=== PATIENT | female | born 1995 | race Caucasian/White ===

== ENCOUNTER → 2016-10-27 | Outpatient (REF) | payer OTHER ==
[~2016-10-27] MED LIST: ACET50TA PO; IBUP60TA PO; PENI250T81 OR; TYLENOL #3 OR
== END ==
LOC: M LAB REF 16:10
PROVIDERS: ATTEND Physician Assistant
DX: R10.9 Unspecified abdominal pain (principal)

== ENCOUNTER 2017-05-11 17:10 | Emergency (ER) | payer OTHER ==
[~2017-05-11] VITALS: Ht 172.7 cm; Wt 90.9 kg
[2017-05-11] MEDS ORDERED: CELE40TA PO (17:30)
--- NOTE | 2017-05-11 18:08 | REP ---
Chest two views HISTORY: Shortness of breath Comparison: 04/25/2016 The lungs are clear. The heart is normal in size. The pulmonary vasculature is normal in appearance. The bony structure is intact. IMPRESSION: No acute disease. Signed by Clayton Henderson MD 05/11/2017 06:00 P
[2017-05-11] MEDS ORDERED: CYCL10TA PO (18:22)
[2017-05-11] MEDS ORDERED: NAPR500T PO (18:22)
[2017-05-11 18:27] VITALS: BP 132/73
[2017-05-11] MEDS ORDERED: diazePAM 5 MG TAB PO ONE (18:30)
[2017-05-11] MEDS ORDERED: NAPROXEN 250 MG TAB PO ONE (18:30)
--- NOTE | 2017-05-13 08:21 | ECGEPIP ---
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
== END 2017-05-11 18:48 | disposition home or self-care (01) ==
LOC: M ED 17:10
DX: M54.12 Radiculopathy, cervical region (principal); F17.200 Nicotine dependence, unspecified, uncomplicated; Z79.899 Other long term (current) drug therapy

== ENCOUNTER 2017-06-11 15:32 | Emergency (ER) | payer OTHER ==
[~2017-06-11] VITALS: Ht 175.3 cm; Wt 90.5 kg
[~2017-06-11 15:32] MED LIST changes: +CELE40TA PO; +CYCL10TA PO; +NAPR500T PO
[2017-06-11] MEDS ORDERED: KETOROLAC 30 MG/ML VIAL (J1885) IV ONE (18:45)
[2017-06-11] MEDS ORDERED: NS 1,000 ML IV ONE (18:45)
[2017-06-11] MEDS ORDERED: ONDANSETRON 4MG/2ML VIAL (J2405) IV ONE ×2 (18:45→20:30)
[2017-06-11 19:17] LABS: BASO % 0.1 % (0.0-1.0); EOS # 0.2 10^3/uL (0.0-0.50); IMMATURE GRANULOCYTE % 0.6 % (0-0); LYMPH # 2.3 10^3/uL (1.5-6.5); LYMPH % 19.5 % (24.0-44.0); MEAN CORPUSCULAR HGB CONC 33.3 g/dl (32.0-36.5); MONO # 0.5 10^3/uL (0.0-0.8); MONO % 4.2 % (0.0-5.0); NEUTROPHILS # 8.6 10^3/uL (1.8-7.7); NEUTROPHILS % 73.6 % (36.0-66.0); PLATELET COUNT, AUTOMATED 470 10^3/uL (150-450); RED CELL DISTRIBUTION WIDTH 13.2 % (11.5-14.5); WHITE BLOOD COUNT 11.7 10^3/uL (4.0-10.0)
--- NOTE | 2017-06-11 19:50 | REPUSA ---
Clinical history: Right upper quadrant pain. Findings: The pancreas is limited in visualization secondary to overlying bowel gas, but appears pennie sly unremarkable. The liver demonstrates uniform echotexture and echogenicity, with no mass lesions. The gallbladder is unremarkable. The common bile duct measures 3 mm and is within normal limits. The right kidney measures 11.3 cm in length and is unremarkable. There is no ascites. Impression: Unremarkable ultrasound examination of the right upper quadrant.
[2017-06-11 19:57] LABS: ALKALINE PHOSPHATASE 65 U/L (45-117); ALT/SGPT 35 U/L (12-78); AMYLASE 36 U/L (25-115); ANION GAP 8 MEQ/L (8-16); AST/SGOT 25 U/L (15-37); BILIRUBIN,DIRECT < 0.1 MG/DL (0.0-0.2); BILIRUBIN,TOTAL 0.3 MG/DL (0.2-1.0); BLOOD UREA NITROGEN 7 MG/DL (7-18); CALCIUM LEVEL 8.3 MG/DL (8.5-10.1); CARBON DIOXIDE LEVEL 25 MEQ/L (21-32); CHLORIDE LEVEL 102 MEQ/L (98-107); CREATININE FOR GFR 0.51 MG/DL (0.55-1.02); GLOMERULAR FILTRATION RATE > 60.0 (>60); GLUCOSE, FASTING 85 MG/DL (70-105); POTASSIUM SERUM 3.6 MEQ/L (3.5-5.1); SODIUM LEVEL 135 MEQ/L (136-145)
[2017-06-11] MEDS ORDERED: MORPHINE 4 MG/ML 1ML SYRINGE IV ONE (20:30)
[2017-06-11] MEDS ORDERED: ISOVUE-370 76% 100ML VIAL (Q9967) As Ordered ONE (21:21)
--- NOTE | 2017-06-11 22:40 | REPUSA ---
CT of the abdomen and pelvis with contrast Clinical statement: Pain. Technique: Multiple axial CT images were obtained from the base of the lungs through the floor of the pelvis utilizing 5 mm axial slices after administration of oral and nonionic intravenous contrast. C oronal and sagittal reconstructions were also obtained. Comparison: 05/08/2016. Findings: Chest: The visualized lung bases are clear. Abdomen: The liver, spleen, pancreas, kidneys, gallbladder, and adrenal glands are unremarkable. A 2 mm nonobstructing stone is seen in the left kidney. The aorta is within normal limits. There is no ev idence of abdominal lymphadenopathy or ascites. Pelvis: The bowel is unremarkable, with no obstructive or inflammatory changes. The appendix is david l. The urinary bladder is within normal limits. IUD is in place within the uterus. The other pelvic s tructures appear grossly intact. There is no evidence of pelvic lymphadenopathy or ascites. Bones: There are no suspicious osseous abnormalities seen. Impression: 1. No focal abnormality to explain the patient's pain. 2. 2 mm nonobstructing stone in the left kidney. 3. No obstructive or inflammatory bowel changes.
[2017-06-11] MEDS ORDERED: ZOFR4TAB3 PO (23:03)
[2017-06-11] MEDS ORDERED: NORCOTAB PO (23:03)
[2017-06-11 23:10] VITALS: BP 120/69
== END 2017-06-11 23:13 | disposition home or self-care (01) ==
LOC: M ED 15:32
DX: R10.9 Unspecified abdominal pain (principal); R50.9 Fever, unspecified; Z86.73 Personal history of transient ischemic attack (TIA), and cerebral infarction without residual deficits; R51 Headache; Z87.442 Personal history of urinary calculi; F41.9 Anxiety disorder, unspecified; F17.200 Nicotine dependence, unspecified, uncomplicated; N20.0 Calculus of kidney; Z79.899 Other long term (current) drug therapy
CPT/HCPCS: 36415; 74177; 76705; 80048; 80076; 81001; 81025; 82150; 83690; 85025; 96374; 96375; 96376; 99284; J1885; J2405; Q9967

== ENCOUNTER 2017-08-07 15:07 | Emergency (ER) | payer OTHER ==
[~2017-08-07] VITALS: Ht 172.7 cm; Wt 96.2 kg
[~2017-08-07 15:07] MED LIST changes: +NORCOTAB PO; +ZOFR4TAB3 PO
[2017-08-07] MEDS ORDERED: NS 1,000 ML IV ONE (17:15)
[2017-08-07] MEDS ORDERED: ONDANSETRON 4MG/2ML VIAL (J2405) IV ONE (17:15)
[2017-08-07 17:41] LABS: BASO # 0.1 10^3/uL (0.0-0.2); BASO % 0.4 % (0.0-1.0); EOS # 0.2 10^3/uL (0.0-0.50); EOS % 1.2 % (0.0-3.0); IMMATURE GRANULOCYTE % 0.3 % (0-0); LYMPH # 3.3 10^3/uL (1.5-6.5); LYMPH % 27.2 % (24.0-44.0); MEAN CORPUSCULAR HEMOGLOBIN 27.2 pg (27.0-33.0); MEAN CORPUSCULAR HGB CONC 33.5 g/dl (32.0-36.5); MEAN CORPUSCULAR VOLUME 81.2 fl (80.0-96.0); MONO # 0.9 10^3/uL (0.0-0.8); MONO % 7.5 % (0.0-5.0); NEUTROPHILS # 7.8 10^3/uL (1.8-7.7); NEUTROPHILS % 63.4 % (36.0-66.0); PLATELET COUNT, AUTOMATED 478 10^3/uL (150-450); RED CELL DISTRIBUTION WIDTH 12.7 % (11.5-14.5); WHITE BLOOD COUNT 12.3 10^3/uL (4.0-10.0)
[2017-08-07] MEDS: MORPHINE 2 MG/ML 1ML SYRINGE IV PRN ×2 (17:43→18:33)
--- NOTE | 2017-08-07 17:43 | REP ---
Urinary tract sonogram: History: Flank pain. Comparison: Comparison CT study June 11, 2017 does show two intrarenal calculi lower pole left kidney and one in the upper pole of the left kidney. Findings: Scanning at the level of the urinary bladder shows no abnormality. Renal cortical echogenicity pattern is normal bilaterally and contours are smooth. There is no evidence of hydronephrosis, cyst, mass, or calculus in either kidney. The right kidney measures 11.7 x 5.7 x 3.9 cm. Left renal dimensions are 12.3 x 5.9 x 4.9 cm. Impression: Normal urinary tract sonography. No hydronephrosis seen. Signed by Carl Quiroz MD 08/07/2017 05:35 P
[2017-08-07 18:16] LABS: ALBUMIN 3.9 GM/DL (3.2-5.2); ALBUMIN/GLOBULIN RATIO 1.03 (1.00-1.93); ALKALINE PHOSPHATASE 68 U/L (45-117); ALT/SGPT 22 U/L (12-78); ANION GAP 7 MEQ/L (8-16); AST/SGOT 11 U/L (7-37); BILIRUBIN,DIRECT 0.1 MG/DL (0.0-0.2); BILIRUBIN,TOTAL 0.5 MG/DL (0.2-1.0); BLOOD UREA NITROGEN 15 MG/DL (7-18); CALCIUM LEVEL 9.4 MG/DL (8.5-10.1); CARBON DIOXIDE LEVEL 27 MEQ/L (21-32); CHLORIDE LEVEL 104 MEQ/L (98-107); GLOMERULAR FILTRATION RATE > 60.0 (>60); GLUCOSE, FASTING 82 MG/DL (70-105); POTASSIUM SERUM 4.2 MEQ/L (3.5-5.1); SODIUM LEVEL 138 MEQ/L (136-145); TOTAL PROTEIN 7.7 GM/DL (6.4-8.2)
[2017-08-07 18:38] LABS: CONTROL LINE UCG INT CTR LINE PRESENT
[2017-08-07 19:26] VITALS: BP 138/91
[2017-08-07] MEDS ORDERED: NORCOTAB PO (19:29)
[2017-08-07] MEDS ORDERED: NORCO 5/325MG TABLET (BULK FOR ED) PO ONE (19:30)
[2017-08-07] MEDS ORDERED: ZOFR4TAB3 PO (19:33)
--- NOTE | 2017-08-07 19:38 | REP ---
CT abdomen pelvis without IV or oral contrast: Renal stone protocol. History: Flank pain. Normal ultrasound. History of kidney stones. Comparison CT study June 11, 2017. 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 An IUD is seen. The lung bases are clear. There is no evidence of pleural effusion or upper abdominal ascites. The liver and the spleen are normal in size homogeneous in texture. The gallbladder and the pancreas are unremarkable. No adrenal lesion is seen on either side. No retroperitoneal mass or adenopathy is observed. A normal appendix is seen. The IUD is noted in good position in the uterus. Urinary bladder is unremarkable. There is no evidence of hydronephrosis on either side. No ureteral calculus is seen. There are however two separate intrarenal calculi in the left kidney. There is 2 mm calculus at the upper pole and another 3-4 mm calculus in the lower pole. Review of CT images from June 11, 2017 demonstrate that there were three intrarenal calculi in the left kidney at that time. Two in the lower pole one in the upper pole. No intrarenal calculus is noted on the right. There are phleboliths bilaterally in the pelvis unchanged. No abdominal wall defect is seen. No bony destructive lesion is appreciated. Impression: Intrarenal nephrolithiasis left kidney with two identifiable intrarenal calculi. Previous CT study shows three. No hydronephrosis or ureteral calculus. IUD in place. Normal appendix. Signed by Carl Quiroz MD 08/07/2017 07:48 P
== END 2017-08-07 19:54 | disposition home or self-care (01) ==
LOC: M ED 15:07
DX: N20.0 Calculus of kidney (principal); Z86.73 Personal history of transient ischemic attack (TIA), and cerebral infarction without residual deficits; R51 Headache; F41.9 Anxiety disorder, unspecified; Z87.891 Personal history of nicotine dependence; Z87.442 Personal history of urinary calculi; Z87.440 Personal history of urinary (tract) infections; Z97.5 Presence of (intrauterine) contraceptive device; Z79.899 Other long term (current) drug therapy
CPT/HCPCS: 74176; 76775; 80048; 80076; 81001; 83690; 84703; 85025; 96361; 96374; 96375; 99284; J2405

== ENCOUNTER 2017-08-11 00:51 | Emergency (ER) | payer OTHER ==
[~2017-08-11] VITALS: Ht 172.7 cm; Wt 96.4 kg
[2017-08-11 01:14] LABS: BASO # 0.1 10^3/uL (0.0-0.2); BASO % 0.5 % (0.0-1.0); EOS # 0.3 10^3/uL (0.0-0.50); EOS % 2.7 % (0.0-3.0); IMMATURE GRANULOCYTE % 0.2 % (0-0); LYMPH # 4.4 10^3/uL (1.5-6.5); MEAN CORPUSCULAR HEMOGLOBIN 27.3 pg (27.0-33.0); MEAN CORPUSCULAR HGB CONC 32.7 g/dl (32.0-36.5); MEAN CORPUSCULAR VOLUME 83.5 fl (80.0-96.0); MONO # 1.1 10^3/uL (0.0-0.8); MONO % 8.8 % (0.0-5.0); NEUTROPHILS # 6.3 10^3/uL (1.8-7.7); NEUTROPHILS % 51.8 % (36.0-66.0); PLATELET COUNT, AUTOMATED 470 10^3/uL (150-450); RED CELL DISTRIBUTION WIDTH 12.5 % (11.5-14.5); WHITE BLOOD COUNT 12.3 10^3/uL (4.0-10.0)
[2017-08-11 01:29] LABS: CONTROL LINE HCG INT CTR LINE PRESENT
[2017-08-11 01:36] LABS: ALBUMIN 3.9 GM/DL (3.2-5.2); ALBUMIN/GLOBULIN RATIO 0.93 (1.00-1.93); ALKALINE PHOSPHATASE 62 U/L (45-117); ALT/SGPT 20 U/L (12-78); AMYLASE 47 U/L (25-115); ANION GAP 6 MEQ/L (8-16); AST/SGOT 13 U/L (7-37); BILIRUBIN,DIRECT < 0.1 MG/DL (0.0-0.2); BILIRUBIN,TOTAL 0.2 MG/DL (0.2-1.0); BLOOD UREA NITROGEN 19 MG/DL (7-18); CALCIUM LEVEL 9.2 MG/DL (8.5-10.1); CARBON DIOXIDE LEVEL 30 MEQ/L (21-32); CHLORIDE LEVEL 104 MEQ/L (98-107); CREATININE FOR GFR 0.57 MG/DL (0.55-1.02); GLOMERULAR FILTRATION RATE > 60.0 (>60); GLUCOSE, FASTING 70 MG/DL (70-105); POTASSIUM SERUM 3.9 MEQ/L (3.5-5.1); SODIUM LEVEL 140 MEQ/L (136-145); TOTAL PROTEIN 8.1 GM/DL (6.4-8.2)
[2017-08-11] MEDS ORDERED: KETOROLAC 30 MG/ML VIAL (J1885) IV ONE (03:00)
[2017-08-11] MEDS ORDERED: KETO10TAB PO (03:42)
[2017-08-11 03:47] VITALS: BP 138/75
--- NOTE | 2017-08-11 03:50 | REPUSA ---
CLINICAL HISTORY: Abdominal pain. TECHNIQUE: Multiple axial, sagittal and coronal CT images were obtained through the abdomen and pelvi s without administration of oral or IV contrast material. COMMENTS: Comparison to prior exam performed on 08/07/2017. The liver is of uniform attenuation without mass or defect. There is no intra or extrahepatic biliary ductal dilatation. The spleen is normal. The gallbladder is within normal limits. The pancreas is of normal contour and attenuation characteristics. There is no evidence of adrenal mass. Left renal nonobstructing stones with the largest measuring 5 mm. The kidneys are normal in size, shape and configuration. No right renal or ureteral calculi are ident ified. There is no hydroureter or hydronephrosis. There is no evidence for appendicitis. There is no bowel wall thickening. No evidence for small or la rge bowel obstruction. There is no evidence of abdominal ascites or lymphadenopathy. There is no evidence of intrinsic or extrinsic bladder mass. There is no pelvic ascites or lymphadeno michael. Unremarkable intrauterine device. Large bowel fecal stasis. Images of the lung bases show no evidence of pleural or parenchymal mass. There are no pleural effusi ons. The bony structures are free of lytic or blastic lesions. Multilevel degenerative changes are seen in volving the thoracolumbar spine. Scattered calcifications are seen involving the aorta and major branches compatible with atherosclero sis. IMPRESSION: Nonobstructing left nephrolithiasis. Unchanged. Constipation. Unchanged. Thank you for your kind referral of this patient.
== END 2017-08-11 03:59 | disposition home or self-care (01) ==
LOC: M ED 00:51
DX: M54.9 Dorsalgia, unspecified (principal); Z87.891 Personal history of nicotine dependence; N20.0 Calculus of kidney; K59.00 Constipation, unspecified
CPT/HCPCS: 74176; 80048; 80076; 81001; 82150; 83690; 84703; 85025; 87086; 96374; 99284; J1885

== ENCOUNTER → 2017-09-04 | Outpatient (REF) | payer OTHER ==
[~2017-09-04] MED LIST changes: +KETO10TAB PO
== END ==
LOC: M SFHCPLAZ 11:34
PROVIDERS: ATTEND Family Medicine
DX: N20.0 Calculus of kidney (principal)

== ENCOUNTER → 2017-09-18 | Outpatient (REF) | payer OTHER ==
[2017-09-18 18:47] LABS: APPEARANCE, URINE CLEAR (CLEAR); BACTERIA, URINE AUTO NEGATIVE (NEGATIVE); BILIRUBIN, URINE AUTO NEGATIVE (NEGATIVE); BLOOD, URINE BLOOD NEGATIVE (NEGATIVE); COLOR, URINE STRAW (YELLOW); GLUCOSE, URINE (UA) AUTO NEGATIVE (NEGATIVE); KETONE, URINE AUTO NEGATIVE (NEGATIVE); LEUKOCYTE ESTERASE, URINE AUTO NEGATIVE (NEGATIVE); MUCUS, URINE SMALL (NEGATIVE); NITRITE, URINE AUTO NEGATIVE (NEGATIVE); PROTEIN, URINE AUTO NEGATIVE (NEGATIVE); RBC, URINE AUTO 0 /HPF (0-3); SPECIFIC GRAVITY URINE AUTO 1.011 (1.002-1.035); SQUAMOUS EPITHELIAL CELL UR AU 2 /HPF (0-6); UROBILINOGEN, URINE AUTO 0.2 mg/dL (0.0-2.0); WBC, URINE AUTO 1 /HPF (0-3)
[2017-09-24 14:11] LABS: ALPRAZOLAM, URINE Positive (.); ALPRAZOLAM, URINE CONFIRM 193 ng/mL (Cutoff=100); AMPHETAMINE SCREEN, URINE Negative ng/mL (Cutoff=1000); BARBITURATES SCREEN, URINE Negative ng/mL (Cutoff=200); BENZODIAZEPINES, URINE Positive ng/mL (Cutoff=100); BENZODIAZEPINES, URINE SCREEN See Final Results ng/mL (Cutoff=200); CANNABINOID SCREEN, URINE Negative ng/mL (Cutoff=20); CLONAZEPAM, URINE Negative (Cutoff=100); COCAINE SCREEN, URINE Negative ng/mL (Cutoff=300); CREATININE, URINE 40.7 mg/dL (20.0-300.0); FENTANYL URINE SCREEN Negative pg/mL (Cutoff=2000); FLURAZEPAM, URINE Negative (Cutoff=100); LORAZEPAM, URINE Negative (Cutoff=100); METHADONE, URINE SCREEN Negative ng/mL (Cutoff=300); MIDAZOLAM, URINE Negative (Cutoff=100); NORDIAZEPAM, URINE Negative (Cutoff=100); OPIATE SCREEN, URINE Negative ng/mL (Cutoff=300); OXAZEPAM, URINE Negative (Cutoff=100); OXYCODONE, SCREEN, URINE Negative ng/mL (Cutoff=100); PCP SCREEN, URINE Negative ng/mL (Cutoff=25); SPECIFIC GRAVITY, URINE 1.015 (.); TEMAZEPAM, URINE Negative (Cutoff=100); TRIAZOLAM, URINE Negative (Cutoff=100); pH, URINE 7.2 (4.5-8.9)
== END ==
LOC: M SFHCPLAZ 17:04
DX: N20.0 Calculus of kidney (principal)

== ENCOUNTER 2017-12-02 16:19 | Emergency (ER) | payer OTHER ==
[2017-12-02 16:54] LABS: APPEARANCE, URINE CLEAR (CLEAR); BACTERIA, URINE AUTO NEGATIVE (NEGATIVE); BILIRUBIN, URINE AUTO NEGATIVE (NEGATIVE); BLOOD, URINE BLOOD 2+ (NEGATIVE); COLOR, URINE YELLOW (YELLOW); GLUCOSE, URINE (UA) AUTO NEGATIVE (NEGATIVE); KETONE, URINE AUTO NEGATIVE (NEGATIVE); LEUKOCYTE ESTERASE, URINE AUTO NEGATIVE (NEGATIVE); MUCUS, URINE SMALL (NEGATIVE); NITRITE, URINE AUTO NEGATIVE (NEGATIVE); PROTEIN, URINE AUTO NEGATIVE (NEGATIVE); RBC, URINE AUTO 2 /HPF (0-3); SPECIFIC GRAVITY URINE AUTO 1.021 (1.002-1.035); SQUAMOUS EPITHELIAL CELL UR AU 13 /HPF (0-6); UROBILINOGEN, URINE AUTO 0.2 mg/dL (0.0-2.0); WBC, URINE AUTO 2 /HPF (0-3)
[2017-12-02] MEDS: NS 1,000 ML IV (17:11)
[2017-12-02] MEDS: MORPHINE 4 MG/ML 1ML VIAL (J2270) IV (17:12)
[2017-12-02] MEDS: ONDANSETRON 4MG/2ML VIAL (J2405) IV (17:12)
[2017-12-02 17:16] LABS: BASO # 0.1 10^3/uL (0.0-0.2); BASO % 0.8 % (0.0-1.0); EOS # 0.2 10^3/uL (0.0-0.50); HEMATOCRIT 46.5 % (36.0-47.0); HEMOGLOBIN 15.4 g/dl (12.0-16.0); IMMATURE GRANULOCYTE % 0.7 % (0-3.0); LYMPH # 3.7 10^3/uL (1.5-6.5); LYMPH % 44.2 % (24.0-44.0); MEAN CORPUSCULAR HEMOGLOBIN 26.3 pg (27.0-33.0); MEAN CORPUSCULAR HGB CONC 33.1 g/dl (32.0-36.5); MEAN CORPUSCULAR VOLUME 79.5 fl (80.0-96.0); MONO # 0.5 10^3/uL (0.0-0.8); NEUTROPHILS # 3.8 10^3/uL (1.8-7.7); NEUTROPHILS % 46.3 % (36.0-66.0); PLATELET COUNT, AUTOMATED 437 10^3/uL (150-450); RED BLOOD COUNT 5.85 10^6/uL (4.00-5.40); RED CELL DISTRIBUTION WIDTH 13.1 % (11.5-14.5); WHITE BLOOD COUNT 8.3 10^3/uL (4.0-10.0)
[2017-12-02 17:30] LABS: ALBUMIN 4.2 GM/DL (3.2-5.2); ALBUMIN/GLOBULIN RATIO 1.05 (1.00-1.93); ALKALINE PHOSPHATASE 64 U/L (45-117); ALT/SGPT 28 U/L (12-78); ANION GAP 6 MEQ/L (8-16); AST/SGOT 25 U/L (7-37); BILIRUBIN,TOTAL 0.7 MG/DL (0.2-1.0); BLOOD UREA NITROGEN 18 MG/DL (7-18); CALCIUM LEVEL 9.2 MG/DL (8.5-10.1); CARBON DIOXIDE LEVEL 29 MEQ/L (21-32); CHLORIDE LEVEL 105 MEQ/L (98-107); CREATININE FOR GFR 0.64 MG/DL (0.55-1.30); GLOMERULAR FILTRATION RATE > 60.0 (>60); GLUCOSE, FASTING 86 MG/DL (70-100); POTASSIUM SERUM 4.3 MEQ/L (3.5-5.1); SODIUM LEVEL 140 MEQ/L (136-145); TOTAL PROTEIN 8.2 GM/DL (6.4-8.2)
[2017-12-02 17:31] LABS: CONTROL LINE UCG INT CTR LINE PRESENT; URINE PREG TEST NEGATIVE (NEGATIVE)
[2017-12-02] MEDS: NORCO 5/325MG TABLET (BULK FOR ED) PO (19:58)
== END 2017-12-02 20:01 | disposition home or self-care (01) ==
LOC: M ED 16:19
DX: N23 Unspecified renal colic (principal); Z87.442 Personal history of urinary calculi; Z79.899 Other long term (current) drug therapy
CPT/HCPCS: J2270

== ENCOUNTER 2018-03-04 18:50 | Emergency (ER) | payer OTHER ==
[2018-03-04 20:49] LABS: BASO # 0.1 10^3/uL (0.0-0.2); BASO % 0.5 % (0.0-1.0); EOS # 0.2 10^3/uL (0.0-0.50); EOS % 1.6 % (0.0-3.0); HEMOGLOBIN 14.6 g/dl (12.0-15.5); IMMATURE GRANULOCYTE % 0.3 % (0-3.0); LYMPH % 36.1 % (24.0-44.0); MEAN CORPUSCULAR HEMOGLOBIN 27.8 pg (27.0-33.0); MEAN CORPUSCULAR VOLUME 81.9 fl (80.0-96.0); MONO # 0.6 10^3/uL (0.0-0.8); MONO % 5.7 % (0.0-5.0); NEUTROPHILS # 6.1 10^3/uL (1.8-7.7); NEUTROPHILS % 55.8 % (36.0-66.0); PLATELET COUNT, AUTOMATED 477 10^3/uL (150-450); RED BLOOD COUNT 5.25 10^6/uL (4.00-5.40); RED CELL DISTRIBUTION WIDTH 12.6 % (11.5-14.5); WHITE BLOOD COUNT 10.9 10^3/uL (4.0-10.0)
[2018-03-04 21:01] LABS: AMORPHOUS SEDIMENT RFX SMALL (NEGATIVE); KETONE, URINE AUTO RFX NEGATIVE (NEGATIVE); NITRITE, URINE AUTO RFX NEGATIVE (NEGATIVE); RBC, URINE AUTO RFX 0 /HPF (0-3); SPECIFIC GRAVITY UR AUTO RFX 1.021 (1.002-1.035); SQUAM EPITHELIAL CELL UR AURFX 6 /HPF (0-6); WBC, URINE AUTO RFX 0 /HPF (0-3)
[2018-03-04 21:04] LABS: LEUKOCYTE ESTERASE UR AUTO RFX TRACE (NEGATIVE)
[2018-03-04 21:19] LABS: ALBUMIN 4.1 GM/DL (3.2-5.2); ALBUMIN/GLOBULIN RATIO 0.98 (1.00-1.93); ALKALINE PHOSPHATASE 49 U/L (45-117); ALT/SGPT 26 U/L (12-78); ANION GAP 8 MEQ/L (8-16); AST/SGOT 17 U/L (7-37); BILIRUBIN,DIRECT 0.1 MG/DL (0.0-0.2); BILIRUBIN,TOTAL 0.3 MG/DL (0.2-1.0); BLOOD UREA NITROGEN 13 MG/DL (7-18); CALCIUM LEVEL 8.9 MG/DL (8.5-10.1); CARBON DIOXIDE LEVEL 29 MEQ/L (21-32); CHLORIDE LEVEL 107 MEQ/L (98-107); CREATININE FOR GFR 0.78 MG/DL (0.55-1.30); GLOMERULAR FILTRATION RATE > 60.0 (>60); GLUCOSE, FASTING 72 MG/DL (70-100); LIPASE 137 U/L (73-393); POTASSIUM SERUM 3.6 MEQ/L (3.5-5.1); SODIUM LEVEL 144 MEQ/L (136-145); TOTAL PROTEIN 8.3 GM/DL (6.4-8.2)
[2018-03-05] MEDS: PERCOCET 5MG/325MG TAB PO ×2 (01:13)
== END 2018-03-05 03:51 | disposition home or self-care (01) ==
LOC: M ED 03-05 00:37
DX: K52.9 Noninfective gastroenteritis and colitis, unspecified (principal); N20.0 Calculus of kidney; R11.0 Nausea; Z87.442 Personal history of urinary calculi; Z87.440 Personal history of urinary (tract) infections; Z86.73 Personal history of transient ischemic attack (TIA), and cerebral infarction without residual deficits; F41.9 Anxiety disorder, unspecified; Z87.891 Personal history of nicotine dependence; Z79.899 Other long term (current) drug therapy
CPT/HCPCS: 74176

== ENCOUNTER → 2018-03-29 | Outpatient (CLI) | payer MEDICAID | LOC: M OUTALCOH 12:44 | DX: Z13.9 Encounter for screening, unspecified (principal); F12.20 Cannabis dependence, uncomplicated ==

== ENCOUNTER 2018-04-08 15:00 | Outpatient (RCR) | payer MEDICAID | END 2018-04-16 | LOC: M OUTALCOH 15:00 | DX: F12.20 Cannabis dependence, uncomplicated (principal); F17.200 Nicotine dependence, unspecified, uncomplicated ==

== ENCOUNTER 2018-05-23 15:56 | Outpatient (RCR) | payer MEDICAID | END 2018-06-16 | LOC: M OUTALCOH 15:56 | DX: F12.20 Cannabis dependence, uncomplicated (principal); F17.200 Nicotine dependence, unspecified, uncomplicated ==

== ENCOUNTER → 2018-06-14 | Outpatient (CLI) | payer OTHER ==
[2018-06-19 08:07] LABS: OXYCODONE SCREEN Negative ng/mL (Cutoff:5)
== END ==
LOC: M LAB 16:44
DX: F12.20 Cannabis dependence, uncomplicated (principal)
CPT/HCPCS: 36415

== ENCOUNTER 2018-06-18 10:00 | Outpatient (RCR) | payer MEDICAID | END 2018-07-17 | LOC: M OUTALCOH 06-20 10:00 | DX: F12.20 Cannabis dependence, uncomplicated (principal); F17.200 Nicotine dependence, unspecified, uncomplicated ==

== ENCOUNTER 2018-06-19 21:25 | Emergency (ER) | payer OTHER, MEDICAID ==
[2018-06-19] MEDS: KETOROLAC 60 MG/2 ML VIAL (J1885) IM (22:03)
[2018-06-19] MEDS: NORCO, ANEXSIA 5/325MG TABLET (HYDROcodone/ACETAMINOPHEN) PO (22:03)
== END 2018-06-19 22:17 | disposition home or self-care (01) ==
LOC: M ED 21:25
DX: S60.222A Contusion of left hand, initial encounter (principal); W22.8XXA Striking against or struck by other objects, initial encounter; Y92.018 Other place in single-family (private) house as the place of occurrence of the external cause
CPT/HCPCS: J1885

== ENCOUNTER 2018-07-22 14:21 | Outpatient (RCR) | payer MEDICAID | END 2018-08-16 | LOC: M OUTALCOH 07-29 16:00 | DX: F12.20 Cannabis dependence, uncomplicated (principal); F17.200 Nicotine dependence, unspecified, uncomplicated ==

== ENCOUNTER 2018-08-04 17:49 | Emergency (ER) | payer MEDICAID ==
[2018-08-04 18:38] LABS: APPEARANCE, URINE CLEAR (CLEAR); BACTERIA, URINE AUTO NEGATIVE (NEGATIVE); BILIRUBIN, URINE AUTO NEGATIVE (NEGATIVE); BLOOD, URINE BLOOD NEGATIVE (NEGATIVE); COLOR, URINE YELLOW (YELLOW); GLUCOSE, URINE (UA) AUTO NEGATIVE (NEGATIVE); KETONE, URINE AUTO NEGATIVE (NEGATIVE); LEUKOCYTE ESTERASE, URINE AUTO NEGATIVE (NEGATIVE); MUCUS, URINE SMALL (NEGATIVE); NITRITE, URINE AUTO NEGATIVE (NEGATIVE); PROTEIN, URINE AUTO NEGATIVE (NEGATIVE); RBC, URINE AUTO 2 /HPF (0-3); SPECIFIC GRAVITY URINE AUTO 1.013 (1.002-1.035); SQUAMOUS EPITHELIAL CELL UR AU 2 /HPF (0-6); UROBILINOGEN, URINE AUTO 0.2 mg/dL (0.0-2.0); WBC, URINE AUTO 1 /HPF (0-3)
[2018-08-04 18:39] LABS: BASO % 0.4 % (0.0-1.0); EOS % 0.3 % (0.0-3.0); HEMATOCRIT 44.9 % (36.0-47.0); HEMOGLOBIN 15.1 g/dl (12.0-15.5); IMMATURE GRANULOCYTE % 0.4 % (0-3.0); LYMPH # 3.2 10^3/uL (1.5-6.5); LYMPH % 31.4 % (24.0-44.0); MEAN CORPUSCULAR HEMOGLOBIN 27.7 pg (27.0-33.0); MEAN CORPUSCULAR HGB CONC 33.6 g/dl (32.0-36.5); MEAN CORPUSCULAR VOLUME 82.4 fl (80.0-96.0); MONO # 0.6 10^3/uL (0.0-0.8); MONO % 5.4 % (0.0-5.0); NEUTROPHILS # 6.4 10^3/uL (1.8-7.7); NEUTROPHILS % 62.1 % (36.0-66.0); PLATELET COUNT, AUTOMATED 434 10^3/uL (150-450); RED BLOOD COUNT 5.45 10^6/uL (4.00-5.40); RED CELL DISTRIBUTION WIDTH 12.2 % (11.5-14.5); WHITE BLOOD COUNT 10.3 10^3/uL (4.0-10.0)
[2018-08-04] MEDS: methylPREDNISolone INJ 125 MG/2 ML VIAL (J2930) IV (18:43)
[2018-08-04] MEDS: CYCLOBENZAPRINE 10 MG TAB PO (18:43)
[2018-08-04 19:00] LABS: ANION GAP 8 MEQ/L (8-16); BLOOD UREA NITROGEN 11 MG/DL (7-18); CALCIUM LEVEL 9.8 MG/DL (8.5-10.1); CARBON DIOXIDE LEVEL 27 MEQ/L (21-32); CHLORIDE LEVEL 104 MEQ/L (98-107); CREATININE FOR GFR 0.59 MG/DL (0.55-1.30); GLOMERULAR FILTRATION RATE > 60.0 (>60); GLUCOSE, FASTING 86 MG/DL (70-100); SODIUM LEVEL 139 MEQ/L (136-145)
[2018-08-04] MEDS: MORPHINE 2 MG/ML 1ML SYRINGE (J2270) IV (19:23)
[2018-08-04] MEDS: fentaNYL 100 MCG/2 ML INJECTION (J3010) IV (20:45)
== END 2018-08-04 21:24 | disposition home or self-care (01) ==
LOC: M ED 17:49
DX: M54.41 Lumbago with sciatica, right side (principal); M54.42 Lumbago with sciatica, left side; F41.9 Anxiety disorder, unspecified; Z86.73 Personal history of transient ischemic attack (TIA), and cerebral infarction without residual deficits; Z87.09 Personal history of other diseases of the respiratory system; Z87.442 Personal history of urinary calculi; Z79.899 Other long term (current) drug therapy; F10.20 Alcohol dependence, uncomplicated; F12.20 Cannabis dependence, uncomplicated; F17.210 Nicotine dependence, cigarettes, uncomplicated
CPT/HCPCS: J2930

== ENCOUNTER → 2018-08-28 | Outpatient (CLI) | payer MEDICAID ==
[2018-09-03 00:08] LABS: OXYCODONE SCREEN Negative ng/mL (Cutoff:5)
== END ==
LOC: M LAB 14:51
DX: F12.20 Cannabis dependence, uncomplicated (principal)
CPT/HCPCS: 36415

== ENCOUNTER 2018-09-12 08:00 | Outpatient (RCR) | payer MEDICAID ==
[~2018-09-12 08:00] MED LIST changes: -ACET50TA PO; +CELE20TA PO; +FLOM0.4C39 PO; +HYDROCO/APAP; +KETO10TAB; +MAPA500T2 PO; +NAPR-50 PO; -NAPR500T PO; +PRED20TA PO; +ROBA500T PO; +TAMS1CAP17; +ZOFR4TAB14 PO; -ZOFR4TAB3 PO
== END 2018-09-16 ==
LOC: M OUTALCOH 08:00
PROVIDERS: ATTEND Psychiatry & Neurology Psychiatry
DX: F12.20 Cannabis dependence, uncomplicated (principal); F17.200 Nicotine dependence, unspecified, uncomplicated

== ENCOUNTER 2018-09-20 17:33 | Emergency (ER) | payer MEDICAID, OTHER ==
[~2018-09-20] VITALS: Ht 175.3 cm; Wt 88.6 kg
[2018-09-20] MEDS ORDERED: ONDANSETRON 4MG/2ML VIAL (J2405) IV ONE (18:15)
[2018-09-20] MEDS ORDERED: NS 1,000 ML IV ONE (18:15)
[2018-09-20] MEDS ORDERED: MORPHINE 2 MG/ML 1ML SYRINGE (J2270) IV PRN (18:15)
[2018-09-20 19:12] LABS: BASO # 0.1 10^3/uL (0.0-0.2); BASO % 0.6 % (0.0-1.0); EOS # 0.1 10^3/uL (0.0-0.50); EOS % 0.7 % (0.0-3.0); HEMATOCRIT 40.5 % (36.0-47.0); HEMOGLOBIN 13.9 g/dl (12.0-15.5); LYMPH # 3.9 10^3/uL (1.5-6.5); LYMPH % 37.4 % (24.0-44.0); MEAN CORPUSCULAR HEMOGLOBIN 27.8 pg (27.0-33.0); MEAN CORPUSCULAR HGB CONC 34.3 g/dl (32.0-36.5); MONO # 0.6 10^3/uL (0.0-0.8); MONO % 5.6 % (0.0-5.0); NEUTROPHILS # 5.7 10^3/uL (1.8-7.7); NEUTROPHILS % 55.3 % (36.0-66.0); PLATELET COUNT, AUTOMATED 422 10^3/uL (150-450); WHITE BLOOD COUNT 10.4 10^3/uL (4.0-10.0)
--- NOTE | 2018-09-20 19:12 | REPVR ---
EXAM: CT Abdomen and Pelvis Without Contrast EXAM DATE/TIME: 09/20/2018 6:05 PM CLINICAL HISTORY: 22 years old, female; Pain; Other: Left flank pain; Additional info: Left flank pain/hx stone TECHNIQUE: Axial computed tomography images of the abdomen and pelvis without contrast. All CT scans at this facility use at least one of these dose optimization techniques: automated exposure control; mA and/or kV adjustment per patient size (includes targeted exams where dose is matched to clinical indication); or iterative reconstruction. Coronal and sagittal reformatted images were created and reviewed. COMPARISON: CT ABD PELVIS W/O CONTRAST 03/05/2018 2:06 AM FINDINGS: Lower thorax: Clear lung bases. The heart is normal in size. ABDOMEN: Liver: Normal. No mass. Gallbladder and bile ducts: Partially contracted gallbladder. Normal common bile duct. Pancreas: Normal pancreas. Spleen: Normal. No splenomegaly. Adrenals: Normal adrenal glands. Kidneys and ureters: There are 4 small round calcified stones 2 mm each in size left kidney/nonobstructive. Stomach and bowel: The cecum is in the right pelvis. The appendix appears within the range of normal. PELVIS: Bladder: Normal appearing urinary bladder. Reproductive: An IUD is noted within the central portion of the uterus. A 2 cm cyst of the left ovary. ABDOMEN and PELVIS: Intraperitoneal space: There is a small amount of free fluid within the pelvis. Bones/joints: No acute fracture. No dislocation. Soft tissues: Unremarkable. Vasculature: The aorta is normal in size. Lymph nodes: Small lymph nodes are noted along the aorta. IMPRESSION: 1. Several small stones left kidney/nonobstructive. 2. 2 cm cyst left ovary. Small amount of free fluid in the pelvis. Electronically signed by: Mauri Griffin On 09/20/2018 19:11:46 PM
[2018-09-20 19:16] LABS: ALBUMIN 4.1 GM/DL (3.2-5.2); ALT/SGPT 27 U/L (12-78); BILIRUBIN,DIRECT 0.1 MG/DL (0.0-0.2); BILIRUBIN,TOTAL 0.4 MG/DL (0.2-1.0); BLOOD UREA NITROGEN 13 MG/DL (7-18); CALCIUM LEVEL 9.5 MG/DL (8.5-10.1); CARBON DIOXIDE LEVEL 24 MEQ/L (21-32); CHLORIDE LEVEL 108 MEQ/L (98-107); CREATININE FOR GFR 0.57 MG/DL (0.55-1.30); GLOMERULAR FILTRATION RATE > 60.0 (>60); GLUCOSE, FASTING 87 MG/DL (70-100); LIPASE 162 U/L (73-393); POTASSIUM SERUM 4.1 MEQ/L (3.5-5.1); SODIUM LEVEL 140 MEQ/L (136-145); TOTAL PROTEIN 7.7 GM/DL (6.4-8.2)
[2018-09-20] MEDS ORDERED: NORCOTAB PO (19:40)
[2018-09-20 19:49] VITALS: BP 122/76
== END 2018-09-20 19:59 | disposition home or self-care (01) ==
LOC: M ED 17:33
DX: N83.202 Unspecified ovarian cyst, left side (principal); N20.0 Calculus of kidney; F41.9 Anxiety disorder, unspecified; Z86.73 Personal history of transient ischemic attack (TIA), and cerebral infarction without residual deficits; Z88.8 Allergy status to other drugs, medicaments and biological substances; Z87.891 Personal history of nicotine dependence
CPT/HCPCS: 36415; 74176; 80048; 80076; 81001; 81025; 83690; 85025; 96361; 96374; 96375; 99284; J2270; J2405

== ENCOUNTER 2018-09-23 22:49 | Emergency (ER) | payer OTHER ==
[~2018-09-23] VITALS: Ht 175.3 cm; Wt 86.4 kg
[2018-09-24] MEDS ORDERED: ONDANSETRON 4 MG ORAL DISINTEGRATING TAB (Q0162 PER 1MG) PO ONE (00:15)
[2018-09-24] MEDS ORDERED: NORCO, ANEXSIA 5/325MG TABLET (HYDROcodone/ACETAMINOPHEN) PO ONE ×2 (00:15→02:00)
[2018-09-24] MEDS ORDERED: GI COCKTAIL 50ML BTL(HYOSCYAMINE/MAALOX/LIDOCAINE VISCOUS)(1:3:1) PO ONE (00:15)
[2018-09-24 00:25] LABS: BASO # 0.1 10^3/uL (0.0-0.2); BASO % 0.3 % (0.0-1.0); EOS % 0.1 % (0.0-3.0); HEMATOCRIT 39.6 % (36.0-47.0); HEMOGLOBIN 13.4 g/dl (12.0-15.5); LYMPH # 3.3 10^3/uL (1.5-6.5); LYMPH % 17.8 % (24.0-44.0); MEAN CORPUSCULAR HGB CONC 33.8 g/dl (32.0-36.5); MEAN CORPUSCULAR VOLUME 82.7 fl (80.0-96.0); MONO # 1.1 10^3/uL (0.0-0.8); MONO % 5.9 % (0.0-5.0); NEUTROPHILS % 75.5 % (36.0-66.0); PLATELET COUNT, AUTOMATED 424 10^3/uL (150-450); RED BLOOD COUNT 4.79 10^6/uL (4.00-5.40); WHITE BLOOD COUNT 18.5 10^3/uL (4.0-10.0)
[2018-09-24 00:34] LABS: ALBUMIN 4.1 GM/DL (3.2-5.2); ALT/SGPT 28 U/L (12-78); BILIRUBIN,TOTAL 0.2 MG/DL (0.2-1.0); BLOOD UREA NITROGEN 11 MG/DL (7-18); CALCIUM LEVEL 9.1 MG/DL (8.5-10.1); CARBON DIOXIDE LEVEL 25 MEQ/L (21-32); CHLORIDE LEVEL 109 MEQ/L (98-107); GLOMERULAR FILTRATION RATE > 60.0 (>60); GLUCOSE, FASTING 88 MG/DL (70-100); LIPASE 134 U/L (73-393); POTASSIUM SERUM 3.5 MEQ/L (3.5-5.1); SODIUM LEVEL 143 MEQ/L (136-145); TOTAL PROTEIN 8.2 GM/DL (6.4-8.2)
--- NOTE | 2018-09-24 02:09 | REPVR ---
EXAM: US Retroperitoneal Limited, Kidneys EXAM DATE/TIME: 09/24/2018 12:58 AM CLINICAL HISTORY: 22 years old, female; Left flank pain and left lower quadrant pain, stones on CT on 09/20/2018. TECHNIQUE: Real-time ultrasound of the retroperitoneum with image documentation. Examination was focused on the kidneys. COMPARISON: RENAL US 08/04/2018 7:[address] ABD PELVIS W/O CONTRAST 09/20/2018 6:06:32 PM FINDINGS: Right kidney: The right kidney is normal in appearance. There is no renal cortical thinning. The renal cortical echogenicity is within normal limits. No renal lesion is seen. There is no hydronephrosis. No obvious stones are seen in the renal collecting system. The right kidney measures 11.3 cm in length. Left kidney: The left kidney is normal in appearance. There is no renal cortical thinning. The renal cortical echogenicity is within normal limits. No renal lesion is seen. There is no hydronephrosis. The left kidney measures 11.7 cm in length. There is a 5 mm calculus in the midpole of the left kidney. IMPRESSION: Nonobstructive left nephrolithiasis. Electronically signed by: Hay Wilson On 09/24/2018 02:09:02 AM
[2018-09-24] MEDS ORDERED: PROMETHAZINE 25 MG TAB PO ONE (02:15)
--- NOTE | 2018-09-24 02:15 | REPVR ---
EXAM: US Duplex Artery and Vein of the Reproductive Organs, Complete Ovaries EXAM DATE/TIME: 09/24/2018 12:58 AM CLINICAL HISTORY: 22 years old, female; Pelvic pain; Llq pain, persistent. TECHNIQUE: Real-time duplex ultrasound scan of the arterial and venous flow with color Doppler flow and spectral waveform analysis. Complete duplex exam focused on the ovaries. Duplex exam was added to evaluate for ovarian torsion or mass. COMPARISON: RENAL US 08/07/2017 5:18 PM FINDINGS: Right adnexa: The arterial and venous color Doppler flow and spectral waveforms within the right ovary are within normal limits. No right ovarian torsion. Left adnexa: The arterial and venous color Doppler flow and spectral waveforms within the left ovary are within normal limits. No left ovarian torsion. IMPRESSION: Normal ovarian arterial and venous vascular flow. No ovarian torsion. EXAM: US Pelvis Complete, Transabdominal and US Pelvis, Transvaginal EXAM DATE/TIME: 09/24/2018 12:58 AM CLINICAL HISTORY: 22 years old, female; Pelvic pain; Llq pain, persistent. TECHNIQUE: Real-time transabdominal and transvaginal pelvic ultrasound (complete) with image documentation. Transvaginal imaging was used for better evaluation of the endometrium and adnexa. COMPARISON: RENAL US 08/07/2017 5:18 PM FINDINGS: Uterus/cervix: The anteverted uterus is unremarkable and measures 9.7 cm x 3.9 cm x 5.5 cm. The endometrium is unremarkable and measures 5 mm in thickness. An intrauterine device is noted in satisfactory position in the endometrial canal. No myometrial mass is noted. Right adnexa: The right ovary is normal in appearance. No right ovarian cyst or right adnexal mass is noted. There are normal follicles in the right ovary. Blood flow is demonstrated to the right ovary. The right ovary measures 3.4 cm x 2.7 cm x 3.4 cm. Left adnexa: The left ovary is normal in appearance. No left ovarian cyst or left adnexal mass is noted. There are normal follicles in the left ovary. Blood flow is demonstrated to the left ovary. The left ovary measures 3.1 cm x 2 cm x 3.3 cm. Free fluid: None. Bladder: The partially distended urinary bladder is unremarkable. IMPRESSION: No acute sonographic findings in the pelvis. Electronically signed by: Hay Wilson On 09/24/2018 02:15:20 AM
[2018-09-24] MEDS ORDERED: PROM25TA12 PO (02:30)
[2018-09-24 02:34] VITALS: BP 120/76
== END 2018-09-24 02:39 | disposition home or self-care (01) ==
LOC: M ED 22:49
DX: R10.32 Left lower quadrant pain (principal); Z87.891 Personal history of nicotine dependence; Z86.73 Personal history of transient ischemic attack (TIA), and cerebral infarction without residual deficits
CPT/HCPCS: 76775; 76830; 76856; 80053; 81001; 83690; 85025; 93976; 99284; Q0162

== ENCOUNTER 2018-10-09 11:22 | Emergency (ER) | payer MEDICAID, OTHER ==
[~2018-10-09] VITALS: Ht 175.3 cm; Wt 92.7 kg
[~2018-10-09 11:22] MED LIST changes: +PROM25TA12 PO
[2018-10-09] MEDS ORDERED: DICY20TA (11:28)
[2018-10-09] MEDS ORDERED: FLOM0.4C39 PO (11:28)
[2018-10-09] MEDS ORDERED: IBUP80TA (11:28)
[2018-10-09] MEDS ORDERED: NS 1,000 ML IV ONE (12:00)
[2018-10-09] MEDS ORDERED: MORPHINE 2 MG/ML 1ML SYRINGE (J2270) IV ONE ×2 (12:00→13:30)
[2018-10-09 12:31] LABS: BASO # 0.1 10^3/uL (0.0-0.2); BASO % 0.6 % (0.0-1.0); EOS # 0.2 10^3/uL (0.0-0.50); EOS % 2.2 % (0.0-3.0); HEMATOCRIT 39.6 % (36.0-47.0); HEMOGLOBIN 13.4 g/dl (12.0-15.5); LYMPH # 2.5 10^3/uL (1.5-6.5); LYMPH % 30.3 % (24.0-44.0); MEAN CORPUSCULAR HGB CONC 33.8 g/dl (32.0-36.5); MEAN CORPUSCULAR VOLUME 82.8 fl (80.0-96.0); MONO # 0.5 10^3/uL (0.0-0.8); MONO % 5.7 % (0.0-5.0); NEUTROPHILS % 60.8 % (36.0-66.0); PLATELET COUNT, AUTOMATED 380 10^3/uL (150-450); RED BLOOD COUNT 4.78 10^6/uL (4.00-5.40); WHITE BLOOD COUNT 8.2 10^3/uL (4.0-10.0)
[2018-10-09 12:58] LABS: ALBUMIN 3.7 GM/DL (3.2-5.2); ALT/SGPT 24 U/L (12-78); AMYLASE 39 U/L (25-115); BILIRUBIN,DIRECT 0.2 MG/DL (0.0-0.2); BILIRUBIN,TOTAL 0.6 MG/DL (0.2-1.0); BLOOD UREA NITROGEN 13 MG/DL (7-18); CALCIUM LEVEL 9.1 MG/DL (8.5-10.1); CARBON DIOXIDE LEVEL 26 MEQ/L (21-32); CHLORIDE LEVEL 106 MEQ/L (98-107); CREATININE FOR GFR 0.61 MG/DL (0.55-1.30); GLOMERULAR FILTRATION RATE > 60.0 (>60); GLUCOSE, FASTING 80 MG/DL (70-100); LIPASE 104 U/L (73-393); POTASSIUM SERUM 4.1 MEQ/L (3.5-5.1); SODIUM LEVEL 139 MEQ/L (136-145); TOTAL PROTEIN 7.3 GM/DL (6.4-8.2)
--- NOTE | 2018-10-09 13:39 | REP ---
RENAL AND BLADDER ULTRASOUND: Real-time sonographic evaluation of the kidneys performed and demonstrates both kidneys to be normal in size and echotexture, right kidney measuring 12.9 x 6.6 x 4.9 cm and left kidney 11.9 x 5.7 x 5.8 cm. There is no hydronephrosis bilaterally. 5 to 6 mm calculus is suspected in the mid to lower left renal collecting system. No other renal abnormalities are seen. Urinary bladder is distended with no mass or calculus. IMPRESSION: There appears to be a 5 to 6 mm calculus in the mid to lower left renal collecting system. No hydronephrosis. Electronically Signed by Shimon Escalera MD 10/09/2018 05:20 P
--- NOTE | 2018-10-09 13:42 | REP ---
PELVIC ULTRASOUND: Real-time sonographic evaluation of the pelvis performed utilizing transabdominal and endovaginal technique. Bladder measures 4.8 x 6.5 x 9.3 cm. Uterus measures 9.9 x 4.1 x 6.1 cm. Endometrial thickness is 3 mm with no endometrial fluid collection. IUD is seen within the endometrial canal. Right ovary measures 2.9 x 2.5 x 2.1 cm and left ovary 4.3 x 3.1 x 3.6 cm with no torsion of either ovary, resistive index on the right 0.61 and on the left 0.62. Dominant follicle of the left ovary measures 2.4 x 1.7 x 2.3 cm. There is trace free fluid in the cervical canal with no free fluid in the cul-de-sac. IMPRESSION: IUD in the endometrial canal. Tiny amount of fluid in the cervical canal. Dominant follicle left ovary 2.4 cm in diameter. No torsion. Electronically Signed by Shimon Escalera MD 10/09/2018 05:21 P
[2018-10-09] MEDS ORDERED: ONDANSETRON 4MG/2ML VIAL (J2405) IV ONE (13:45)
[2018-10-09] MEDS ORDERED: FLAG500T PO (14:55)
[2018-10-09] MEDS ORDERED: ACET30TAB PO (14:56)
[2018-10-09 15:10] VITALS: BP 118/65
[2018-10-09 16:06] LABS: CHLAMYDIA DNA AMPLIFICATION POSITIVE (NEGATIVE); GC DNA AMPLIFICATION NEGATIVE (NEGATIVE)
== END 2018-10-09 15:34 | disposition home or self-care (01) ==
LOC: M ED 11:22
DX: N76.0 Acute vaginitis (principal); B96.89 Other specified bacterial agents as the cause of diseases classified elsewhere; N83.209 Unspecified ovarian cyst, unspecified side
CPT/HCPCS: 76775; 76830; 76856; 80048; 80076; 81001; 81025; 82150; 83690; 85025; 87210; 87491; 87591; 93976; 96361; 96374; 96375; 96376; 99284; J2270; J2405

== ENCOUNTER 2018-10-14 08:00 | Outpatient (RCR) | payer MEDICAID ==
[~2018-10-14 08:00] MED LIST changes: +ACET30TAB PO; +DICY20TA; +FLAG500T PO; +IBUP80TA
[2018-10-14] MEDS ORDERED: AZIT500T2 (15:05)
[2018-10-14] MEDS ORDERED: ACET30TAB PO (17:35)
[2018-10-14] MEDS ORDERED: AUGM875T28 PO (17:37)
== END 2018-10-17 ==
LOC: M OUTALCOH 08:00
PROVIDERS: ATTEND Psychiatry & Neurology Psychiatry
DX: F12.20 Cannabis dependence, uncomplicated (principal); F17.200 Nicotine dependence, unspecified, uncomplicated

== ENCOUNTER 2018-10-14 14:46 | Emergency (ER) | payer OTHER ==
[~2018-10-14] VITALS: Ht 175.3 cm; Wt 86.4 kg
[2018-10-14] MEDS ORDERED: AZIT500T2 (15:05)
[2018-10-14] MEDS ORDERED: MORPHINE 10 MG/ML 1ML VIAL (J2270) IM ONE (17:30)
[2018-10-14] MEDS ORDERED: AUGMENTIN 875 MG TAB PO ONE (17:30)
[2018-10-14] MEDS ORDERED: ACET30TAB PO (17:35)
[2018-10-14] MEDS ORDERED: AUGM875T28 PO (17:37)
[2018-10-14 18:26] VITALS: BP 120/65
== END 2018-10-14 18:23 | disposition home or self-care (01) ==
LOC: M ED 14:46
DX: K08.89 Other specified disorders of teeth and supporting structures (principal); Z79.899 Other long term (current) drug therapy; Z88.8 Allergy status to other drugs, medicaments and biological substances; Z88.5 Allergy status to narcotic agent
CPT/HCPCS: 99283; J2270

== ENCOUNTER 2018-10-26 16:57 | Emergency (ER) | payer OTHER ==
[~2018-10-26] VITALS: Ht 175.3 cm; Wt 90.7 kg
[~2018-10-26 16:57] MED LIST changes: +AUGM875T28 PO; +AZIT500T2
[2018-10-26] MEDS ORDERED: SMZ/TMP (17:06)
[2018-10-26] MEDS ORDERED: ISOVUE-370 76% 100ML VIAL (Q9967) As Ordered ONE (17:18)
[2018-10-26 17:42] LABS: BASO % 0.6 % (0.0-1.0); EOS # 0.1 10^3/uL (0.0-0.50); EOS % 0.7 % (0.0-3.0); HEMATOCRIT 43.2 % (36.0-47.0); HEMOGLOBIN 14.8 g/dl (12.0-15.5); LYMPH # 2.6 10^3/uL (1.5-6.5); LYMPH % 36.5 % (24.0-44.0); MEAN CORPUSCULAR HEMOGLOBIN 28.1 pg (27.0-33.0); MEAN CORPUSCULAR HGB CONC 34.3 g/dl (32.0-36.5); MEAN CORPUSCULAR VOLUME 82.1 fl (80.0-96.0); MONO # 0.3 10^3/uL (0.0-0.8); MONO % 3.9 % (0.0-5.0); NEUTROPHILS # 4.2 10^3/uL (1.8-7.7); NEUTROPHILS % 57.9 % (36.0-66.0); PLATELET COUNT, AUTOMATED 434 10^3/uL (150-450); RED BLOOD COUNT 5.26 10^6/uL (4.00-5.40); WHITE BLOOD COUNT 7.2 10^3/uL (4.0-10.0)
--- NOTE | 2018-10-26 17:50 | REPVR ---
EXAM: CT Abdomen and Pelvis Without Contrast EXAM DATE/TIME: 10/26/2018 5:28 PM CLINICAL HISTORY: 22 years old, female; Pain; Abdominal pain; Flank; Left; Additional info: Flank pain, HX of stones TECHNIQUE: Axial computed tomography images of the abdomen and pelvis without contrast. All CT scans at this facility use at least one of these dose optimization techniques: automated exposure control; mA and/or kV adjustment per patient size (includes targeted exams where dose is matched to clinical indication); or iterative reconstruction. Coronal and sagittal reformatted images were created and reviewed. COMPARISON: CT ABD PELVIS W/O CONTRAST 09/20/2018 6:06 PM FINDINGS: Lower thorax: No acute findings. ABDOMEN: Liver: Unremarkable. No mass. Gallbladder and bile ducts: Normal. No calcified stones. No ductal dilation. Pancreas: Unremarkable. No ductal dilation. Spleen: Unremarkable. No splenomegaly. Adrenals: Normal. No mass. Kidneys and ureters: There are 4 or 5 nonobstructing punctate stones in the left kidney. No right renal stone. No stones seen within either ureter. No hydronephrosis. Stomach and bowel: Unremarkable. No obstruction. No mucosal thickening. Appendix: Normal appendix. PELVIS: Bladder: Unremarkable as visualized. Reproductive: IUD within the uterus. Left ovarian cyst measuring 3.1 cm. Unremarkable right adnexa. ABDOMEN and PELVIS: Intraperitoneal space: Trace fluid within the right posterior cul-de-sac, likely physiologic. Bones/joints: No acute fracture. Soft tissues: Unremarkable. Vasculature: Unremarkable. No abdominal aortic aneurysm. Lymph nodes: No enlarged lymph nodes. IMPRESSION: 1. Left nephrolithiasis. 2. Left ovarian cyst measuring 3.1 cm and trace fluid within the right posterior cul-de-sac. Electronically signed by: Robson Hayes On 10/26/2018 17:50:02 PM
[2018-10-26 17:59] LABS: BLOOD UREA NITROGEN 15 MG/DL (7-18); CARBON DIOXIDE LEVEL 27 MEQ/L (21-32); CHLORIDE LEVEL 106 MEQ/L (98-107); CREATININE FOR GFR 0.59 MG/DL (0.55-1.30); GLOMERULAR FILTRATION RATE > 60.0 (>60); GLUCOSE, FASTING 95 MG/DL (70-100); POTASSIUM SERUM 3.9 MEQ/L (3.5-5.1); SODIUM LEVEL 139 MEQ/L (136-145)
[2018-10-26] MEDS ORDERED: MORPHINE 4 MG/ML 1ML VIAL/SYRINGE (J2270) IV ONE (18:45)
[2018-10-26] MEDS ORDERED: ONDANSETRON 4MG/2ML VIAL (J2405) IV ONE (18:45)
[2018-10-26] MEDS ORDERED: NORCOTAB PO (19:11)
[2018-10-26] MEDS ORDERED: ONDA4TAB6 PO (19:15)
[2018-10-26 19:22] VITALS: BP 133/88
== END 2018-10-26 19:31 | disposition home or self-care (01) ==
LOC: M ED 16:57
DX: N83.202 Unspecified ovarian cyst, left side (principal); N20.0 Calculus of kidney; R10.9 Unspecified abdominal pain; R11.2 Nausea with vomiting, unspecified; F41.9 Anxiety disorder, unspecified; Z87.442 Personal history of urinary calculi; Z87.440 Personal history of urinary (tract) infections; Z86.73 Personal history of transient ischemic attack (TIA), and cerebral infarction without residual deficits; Z87.891 Personal history of nicotine dependence; Z88.4 Allergy status to anesthetic agent; Z79.899 Other long term (current) drug therapy
CPT/HCPCS: 36415; 74176; 80048; 81001; 81025; 85025; 96374; 96375; 99284; J2270; J2405

== ENCOUNTER 2018-11-02 19:11 | Emergency (ER) | payer OTHER ==
[~2018-11-02] VITALS: Ht 175.3 cm; Wt 92.6 kg
[~2018-11-02 19:11] MED LIST changes: +ONDA4TAB6 PO; +SMZ/TMP
[2018-11-02 19:58] LABS: URINE PREG TEST NEGATIVE (NEGATIVE)
[2018-11-02 20:09] LABS: APPEARANCE, URINE CLEAR (CLEAR); BACTERIA, URINE AUTO NEGATIVE (NEGATIVE); BILIRUBIN, URINE AUTO NEGATIVE (NEGATIVE); BLOOD, URINE BLOOD 3+ (NEGATIVE); COLOR, URINE STRAW (YELLOW); GLUCOSE, URINE (UA) AUTO NEGATIVE (NEGATIVE); KETONE, URINE AUTO NEGATIVE (NEGATIVE); LEUKOCYTE ESTERASE, URINE AUTO NEGATIVE (NEGATIVE); NITRITE, URINE AUTO NEGATIVE (NEGATIVE); PROTEIN, URINE AUTO NEGATIVE (NEGATIVE); RBC, URINE AUTO 27 /HPF (0-3); SPECIFIC GRAVITY URINE AUTO 1.005 (1.002-1.035); SQUAMOUS EPITHELIAL CELL UR AU 1 /HPF (0-6); UROBILINOGEN, URINE AUTO 0.2 mg/dL (0.0-2.0); WBC, URINE AUTO 1 /HPF (0-3)
[2018-11-02] MEDS ORDERED: ACETAMINOPHEN 325 MG TAB PO ONE (22:00)
--- NOTE | 2018-11-02 23:05 | REPVR ---
EXAM: CT Abdomen and Pelvis Without Contrast EXAM DATE/TIME: 11/02/2018 10:05 PM CLINICAL HISTORY: 22 years old, female; Pain; Abdominal pain; Flank; Left; Additional info: Left flank pain TECHNIQUE: Axial computed tomography images of the abdomen and pelvis without contrast. All CT scans at this facility use at least one of these dose optimization techniques: automated exposure control; mA and/or kV adjustment per patient size (includes targeted exams where dose is matched to clinical indication); or iterative reconstruction. Coronal and sagittal reformatted images were created and reviewed. COMPARISON: CT ABD PELVIS W/O CONTRAST 10/26/2018 5:20 PM FINDINGS: Lower thorax: Clear appearing lungs bases. ABDOMEN: Liver: Normal appearing liver. Gallbladder and bile ducts: Normal gallbladder. Normal common bile duct. Pancreas: Normal pancreas. Spleen: Normal spleen. Adrenals: Normal adrenal glands. Kidneys and ureters: There is a punctate stone lower pole right kidney. There are 6 small calcified stones left kidney/nonobstructive. Mild swelling of the left kidney which could be due to mild pyelonephritis. Stomach and bowel: The cecum is in the right pelvis. There are secretions within loops of small bowel which may be due to mild ileus or enteritis. Appendix: The appendix appears within the range of normal. PELVIS: Bladder: Normal urinary bladder. Reproductive: There is an IUD within the central portion of the endometrial cavity of the uterus. Small follicular cysts noted right and left ovaries. ABDOMEN and PELVIS: Intraperitoneal space: There is no evidence of pneumoperitoneum. There is a small amount of free fluid in the pelvis. Bones/joints: There is no evidence of bony abnormality. Soft tissues: Unremarkable. Vasculature: The aorta is normal in size. Lymph nodes: Normal. No enlarged lymph nodes. IMPRESSION: 1. 6 small calcified stones throughout the left kidney/nonobstructive. There is however swelling of the left kidney which could be due to changes of pyelonephritis. 2. There is a small amount of free fluid in the pelvis. There are follicular cysts in both ovaries. Electronically signed by: Mauri Griffin On 11/02/2018 23:04:47 PM
[2018-11-02] MEDS ORDERED: ONDANSETRON 4 MG ORAL DISINTEGRATING TAB (Q0162 PER 1MG) PO ONE (23:15)
[2018-11-02 23:27] LABS: HEMATOCRIT 40.8 % (36.0-47.0); HEMOGLOBIN 13.7 g/dl (12.0-15.5); MEAN CORPUSCULAR HEMOGLOBIN 27.8 pg (27.0-33.0); MEAN CORPUSCULAR HGB CONC 33.6 g/dl (32.0-36.5); MEAN CORPUSCULAR VOLUME 82.9 fl (80.0-96.0); PLATELET COUNT, AUTOMATED 432 10^3/uL (150-450); RED BLOOD COUNT 4.92 10^6/uL (4.00-5.40); WHITE BLOOD COUNT 9.7 10^3/uL (4.0-10.0)
[2018-11-02 23:46] LABS: BLOOD UREA NITROGEN 11 MG/DL (7-18); CARBON DIOXIDE LEVEL 24 MEQ/L (21-32); CHLORIDE LEVEL 110 MEQ/L (98-107); CREATININE FOR GFR 0.59 MG/DL (0.55-1.30); GLOMERULAR FILTRATION RATE > 60.0 (>60); GLUCOSE, FASTING 77 MG/DL (70-100); SODIUM LEVEL 141 MEQ/L (136-145)
[2018-11-02] MEDS ORDERED: CYCL5TAB PO (23:55)
[2018-11-03] MEDS ORDERED: CYCLOBENZAPRINE 5MG TABLET PO ONE
[2018-11-03 00:27] VITALS: BP 122/71
== END 2018-11-03 00:30 | disposition home or self-care (01) ==
LOC: M ED 19:11
DX: R10.32 Left lower quadrant pain (principal); Z88.8 Allergy status to other drugs, medicaments and biological substances; F41.9 Anxiety disorder, unspecified; Z87.442 Personal history of urinary calculi
CPT/HCPCS: 74176; 80048; 81001; 84703; 85027; 87086; 99283; Q0162

== ENCOUNTER → 2018-11-10 | Outpatient (REF) | payer OTHER ==
[~2018-11-10] MED LIST changes: +CYCL5TAB PO
[2018-11-10 19:41] LABS: INFLUENZA A AMPLIFICATION NEGATIVE (NEGATIVE); INFLUENZA B AMPLIFICATION NEGATIVE (NEGATIVE)
== END ==
LOC: M LAB REF 10:57
PROVIDERS: ATTEND Nurse Practitioner Family
DX: J11.1 Influenza due to unidentified influenza virus with other respiratory manifestations (principal)

== ENCOUNTER 2018-11-19 14:37 | Outpatient (RCR) | payer MEDICAID | END 2018-12-15 | LOC: M OUTALCOH 14:37 | PROVIDERS: ATTEND Psychiatry & Neurology Psychiatry | DX: F12.20 Cannabis dependence, uncomplicated (principal); F17.200 Nicotine dependence, unspecified, uncomplicated ==

== ENCOUNTER → 2018-11-20 | Outpatient (REF) | payer MEDICAID, OTHER ==
[2018-11-20 20:24] LABS: CHLAMYDIA DNA AMPLIFICATION NEGATIVE (NEGATIVE); GC DNA AMPLIFICATION NEGATIVE (NEGATIVE)
== END ==
LOC: M SFHCWAGY 17:03
PROVIDERS: ATTEND Nurse Practitioner Women's Health
DX: Z11.3 Encounter for screening for infections with a predominantly sexual mode of transmission (principal); R10.2 Pelvic and perineal pain

== ENCOUNTER 2018-12-24 13:13 | Outpatient (RCR) | payer MEDICAID ==
[~2018-12-24 13:13] MED LIST changes: +ACET-716 PO; -ACET30TAB PO; +HYDR-3715 PO; +IBUP600T42 PO; -IBUP60TA PO; -NAPR-50 PO; +NAPR-837 PO; -NORCOTAB PO
== END 2019-01-14 ==
LOC: M OUTALCOH 13:13
PROVIDERS: ATTEND Psychiatry & Neurology Psychiatry
DX: F12.20 Cannabis dependence, uncomplicated (principal); F17.200 Nicotine dependence, unspecified, uncomplicated

== ENCOUNTER 2019-02-12 19:44 | Emergency (ER) | payer MEDICAID, OTHER ==
[~2019-02-12] VITALS: Ht 175.3 cm; Wt 86.4 kg
--- NOTE | 2019-02-12 20:17 | REP ---
Clinical: Chest and back pain . Comparison: 05/11/2017 . Technique: PA and lateral. Findings: The mediastinum and cardiac silhouette are normal. The lung godwin are clear and without acute consolidation, effusion, or pneumothorax. The skeletal structures are intact and normal. Impression: 1. No acute cardiopulmonary process. Electronically Signed by Andriy Armando MD 02/12/2019 08:08 P
[2019-02-12] MEDS ORDERED: METHOCARBAMOL 750 MG TAB PO ONE (21:45)
[2019-02-12] MEDS ORDERED: predniSONE 20 MG TAB PO ONE (21:45)
[2019-02-12] MEDS ORDERED: PRED20TA PO (22:32)
[2019-02-12] MEDS ORDERED: ROBA500T PO (22:32)
[2019-02-12 22:42] VITALS: BP 130/71
== END 2019-02-12 22:43 | disposition home or self-care (01) ==
LOC: M ED 19:44
DX: S39.012A Strain of muscle, fascia and tendon of lower back, initial encounter (principal); X58.XXXA Exposure to other specified factors, initial encounter; Y92.9 Unspecified place or not applicable; Y93.9 Activity, unspecified; Y99.9 Unspecified external cause status; Z86.73 Personal history of transient ischemic attack (TIA), and cerebral infarction without residual deficits; Z87.442 Personal history of urinary calculi; F41.9 Anxiety disorder, unspecified; Z79.3 Long term (current) use of hormonal contraceptives; Z79.899 Other long term (current) drug therapy; Z88.5 Allergy status to narcotic agent; Z88.8 Allergy status to other drugs, medicaments and biological substances

== ENCOUNTER → 2019-02-20 | Outpatient (CLI) | payer OTHER ==
[2019-02-20 11:24] LABS: HEMATOCRIT 39.6 % (36.0-47.0); HEMOGLOBIN 13.8 g/dl (12.0-15.5); MEAN CORPUSCULAR HEMOGLOBIN 28.9 pg (27.0-33.0); MEAN CORPUSCULAR HGB CONC 34.8 g/dl (32.0-36.5); MEAN CORPUSCULAR VOLUME 82.8 fl (80.0-96.0); PLATELET COUNT, AUTOMATED 355 10^3/uL (150-450); RED BLOOD COUNT 4.78 10^6/uL (4.00-5.40); WHITE BLOOD COUNT 7.8 10^3/uL (4.0-10.0)
[2019-02-20 12:07] LABS: ALBUMIN 3.8 GM/DL (3.2-5.2); ALT/SGPT 24 U/L (12-78); BILIRUBIN,TOTAL 1.1 MG/DL (0.2-1.0); BLOOD UREA NITROGEN 12 MG/DL (7-18); CALCIUM LEVEL 8.9 MG/DL (8.5-10.1); CARBON DIOXIDE LEVEL 25 MEQ/L (21-32); CHLORIDE LEVEL 106 MEQ/L (98-107); CHOLESTEROL LEVEL 164 MG/DL (<200); CHOLESTEROL RISK RATIO 2.688 (<5); CREATININE FOR GFR 0.64 MG/DL (0.55-1.30); GLOMERULAR FILTRATION RATE > 60.0 (>60); GLUCOSE, FASTING 84 MG/DL (70-100); HDL CHOLESTEROL 61 MG/DL (>40); LDL CHOLESTEROL 94 MG/DL (<100); NON-HDL-C 103 MG/DL; POTASSIUM SERUM 3.8 MEQ/L (3.5-5.1); SODIUM LEVEL 139 MEQ/L (136-145); THYROXINE (T4) 9.3 UG/DL (4.5-12.0); TOTAL 25(OH) VITAMIN D 42.6 NG/ML (30.0-100.0); TOTAL PROTEIN 7.3 GM/DL (6.4-8.2); TOTAL T3 113.2 NG/DL (60.0-181.0); TRIGLYCERIDES LEVEL 46 MG/DL (<150)
--- NOTE | 2019-02-20 17:11 | ECGEPIP ---
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 No change from 05/11/17. Electronically Signed on 02-20-2019 17:10:49 EDT by Josh Horan
--- NOTE | 2019-02-21 02:41 | REP ---
Clinical: Anemia . Comparison: 02/12/2019 . Technique: PA and lateral. Findings: The mediastinum and cardiac silhouette are normal. The lung godwin are clear and without acute consolidation, effusion, or pneumothorax. The skeletal structures are intact and normal. Impression: 1. No acute cardiopulmonary process. Electronically Signed by Andriy Armando MD 02/21/2019 02:32 A
== END ==
LOC: M LAB 10:49
PROVIDERS: ATTEND Family Medicine
DX: D64.9 Anemia, unspecified (principal); R53.83 Other fatigue; E03.9 Hypothyroidism, unspecified

== ENCOUNTER 2019-02-26 13:21 | Outpatient (RCR) | payer MEDICAID | END 2019-03-16 | LOC: M OUTALCOH 13:21 | PROVIDERS: ATTEND Psychiatry & Neurology Psychiatry | DX: F12.20 Cannabis dependence, uncomplicated (principal); F17.200 Nicotine dependence, unspecified, uncomplicated ==

== ENCOUNTER 2019-04-08 16:10 | Outpatient (RCR) | payer MEDICAID | END 2019-04-16 | LOC: M OUTALCOH 16:10 | PROVIDERS: ATTEND Psychiatry & Neurology Psychiatry | DX: F12.20 Cannabis dependence, uncomplicated (principal); F17.200 Nicotine dependence, unspecified, uncomplicated ==

== ENCOUNTER → 2019-04-27 | Outpatient (REF) | payer MEDICAID | LOC: M LAB REF 09:12 | PROVIDERS: ATTEND Nurse Practitioner Family | DX: J02.9 Acute pharyngitis, unspecified (principal) ==

== ENCOUNTER 2019-06-26 15:04 | Emergency (ER) | payer MEDICAID, OTHER ==
[~2019-06-26] VITALS: Ht 175.3 cm; Wt 84.6 kg
[~2019-06-26 15:04] MED LIST changes: -AZIT500T2; +AZIT500T5
[2019-06-26] MEDS ORDERED: ALPR0.5T3 (15:12)
[2019-06-26] MEDS ORDERED: MIRE1IUD IU (15:12)
[2019-06-26] MEDS ORDERED: ADDE20CA3 PO (15:12)
[2019-06-26] MEDS ORDERED: VENL37TA (15:12)
[2019-06-26] MEDS ORDERED: MORPHINE 2 MG/ML 1ML VIAL (J2270) IV ONE ×2 (16:30→18:00)
[2019-06-26 17:03] LABS: BASO # 0.1 10^3/uL (0.0-0.2); BASO % 0.7 % (0.0-1.0); EOS # 0.2 10^3/uL (0.0-0.5); EOS % 2.9 % (0.0-3.0); HEMATOCRIT 41.8 % (36.0-47.0); HEMOGLOBIN 13.7 g/dl (12.0-15.5); LYMPH # 2.9 10^3/uL (1.5-5.0); LYMPH % 37.2 % (24.0-44.0); MEAN CORPUSCULAR HEMOGLOBIN 27.7 pg (27.0-33.0); MEAN CORPUSCULAR HGB CONC 32.8 g/dl (32.0-36.5); MEAN CORPUSCULAR VOLUME 84.4 fl (80.0-96.0); MONO # 0.6 10^3/uL (0.0-0.8); MONO % 7.3 % (0.0-5.0); NEUTROPHILS % 51.6 % (36.0-66.0); PLATELET COUNT, AUTOMATED 341 10^3/uL (150-450); RED BLOOD COUNT 4.95 10^6/uL (4.00-5.40); WHITE BLOOD COUNT 7.7 10^3/uL (4.0-10.0)
--- NOTE | 2019-06-26 17:38 | REP ---
PA and lateral chest: Comparison is 02/20/2019. The lung godwin are clear. The cardiac size is normal. The helio, mediastinum, and skeletal structures are unremarkable. There is no pneumothorax. Impression: Negative PA and lateral chest. There is no interval change. Electronically Signed by Shimon Navarro MD 06/26/2019 05:30 P
[2019-06-26 18:08] LABS: CK-MB VALUE MASS < 1.0 NG/ML (<3.6); CPK CREATINE PHOSPHOKINASE 44 U/L (26-192); MB/CK RELATIVE INDEX 2.27 (< OR =4); TROPONIN I < 0.02 NG/ML (< 0.10)
--- NOTE | 2019-06-26 18:37 | REPVR ---
PROCEDURE INFORMATION: Exam: CT Abdomen And Pelvis Without Contrast Exam date and time: 06/26/2019 5:46 PM Clinical history: 23 years old, female; Abdominal pain; Flank; Left; Additional info: Left flank pain TECHNIQUE: Imaging protocol: Computed tomography of the abdomen and pelvis without contrast. Radiation optimization: All CT scans at this facility use at least one of these dose optimization techniques: automated exposure control; mA and/or kV adjustment per patient size (includes targeted exams where dose is matched to clinical indication); or iterative reconstruction. COMPARISON: CT ABD PELVIS W/O CONTRAST 11/02/2018 9:58 PM FINDINGS: Limited evaluation without enteric or IV contrast. Lungs: No suspicious mass or airspace process in the visualized lung bases. Liver: Noncontrast liver shows no obvious lesion. Gallbladder and bile ducts: Gallbladder is present and shows no evidence of gallstone. Pancreas: Noncontrast pancreas shows no obvious mass or adjacent fluid. Spleen: Noncontrast spleen shows no obvious focal deformity. Adrenals: Adrenal glands are normal in appearance. Kidneys and ureters: Kidneys are unremarkable aside from nonobstructive left renal stones. No ureter dilatation or stone. Stomach and bowel: No evidence of small bowel obstruction. Appendix: Normal caliber appendix is identified, with no adjacent inflammation. Intraperitoneal space: No pneumoperitoneum. Trace free fluid is present in the pelvis. Vasculature: No aortic aneurysm. Lymph nodes: No bulky adenopathy on limited noncontrast exam. Bladder: Urinary bladder appears normal. Reproductive: Intrauterine device is present. Bones/joints: Bony structures show no acute fracture or destructive process. IMPRESSION: Nonobstructive left renal calculi. No hydronephrosis or ureter stone Electronically signed by: Dickson Coe On 06/26/2019 18:36:54 PM
[2019-06-26 20:28] VITALS: BP 149/69
[2019-06-26] MEDS ORDERED: ACETAMINOPHEN 325 MG TAB PO ONE (20:30)
--- NOTE | 2019-06-27 07:33 | ECGEPIP ---
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
== END 2019-06-26 20:32 | disposition home or self-care (01) ==
LOC: M ED 15:04
DX: S29.011A Strain of muscle and tendon of front wall of thorax, initial encounter (principal); R10.9 Unspecified abdominal pain; X58.XXXA Exposure to other specified factors, initial encounter; Y92.9 Unspecified place or not applicable; Y93.9 Activity, unspecified; Y99.9 Unspecified external cause status; N20.0 Calculus of kidney; Z87.442 Personal history of urinary calculi; Z87.448 Personal history of other diseases of urinary system; Z86.73 Personal history of transient ischemic attack (TIA), and cerebral infarction without residual deficits; Z87.09 Personal history of other diseases of the respiratory system; Z97.5 Presence of (intrauterine) contraceptive device; Z79.899 Other long term (current) drug therapy; Z88.5 Allergy status to narcotic agent; Z88.8 Allergy status to other drugs, medicaments and biological substances
CPT/HCPCS: 71046; 74176; 80047; 81001; 82550; 82553; 85025; 85379; 87086; 93005; 96374; 96376; 99284; J2270

== ENCOUNTER → 2019-07-03 | Outpatient (REF) | payer OTHER ==
[~2019-07-03] MED LIST changes: +ADDE20CA3 PO; +ALPR0.5T3; +MIRE1IUD IU; +VENL37TA
== END ==
LOC: M LAB REF 16:29
PROVIDERS: ATTEND Nurse Practitioner Family
DX: R30.0 Dysuria (principal)

== ENCOUNTER 2020-03-26 20:53 | Emergency (ER) | payer OTHER ==
[~2020-03-26] VITALS: Ht 175.3 cm; Wt 86.4 kg
[~2020-03-26 20:53] MED LIST changes: +CYCL-707 PO; -CYCL10TA PO
[2020-03-26] MEDS ORDERED: VERAP80TA (21:12)
[2020-03-26] MEDS ORDERED: WELL100T2 (21:12)
[2020-03-26 21:43] LABS: BASO # 0.1 10^3/uL (0.0-0.2); BASO % 0.6 % (0.0-1.0); EOS # 0.2 10^3/uL (0.0-0.5); EOS % 1.9 % (0.0-3.0); HEMATOCRIT 39.9 % (36.0-47.0); HEMOGLOBIN 13.5 g/dl (12.0-15.5); LYMPH # 2.8 10^3/uL (1.5-5.0); LYMPH % 32.9 % (24.0-44.0); MEAN CORPUSCULAR HEMOGLOBIN 28.4 pg (27.0-33.0); MEAN CORPUSCULAR HGB CONC 33.8 g/dl (32.0-36.5); MEAN CORPUSCULAR VOLUME 83.8 fl (80.0-96.0); MONO # 0.5 10^3/uL (0.0-0.8); MONO % 6.2 % (0.0-5.0); NEUTROPHILS # 4.9 10^3/uL (1.5-8.5); NEUTROPHILS % 58.2 % (36.0-66.0); PLATELET COUNT, AUTOMATED 358 10^3/uL (150-450); RED BLOOD COUNT 4.76 10^6/uL (4.00-5.40); WHITE BLOOD COUNT 8.4 10^3/uL (4.0-10.0)
[2020-03-26 22:06] LABS: ALBUMIN 3.5 GM/DL (3.2-5.2); ALT/SGPT 18 U/L (12-78); BILIRUBIN,DIRECT < 0.1 MG/DL (0.0-0.2); BILIRUBIN,TOTAL 0.2 MG/DL (0.2-1.0); BLOOD UREA NITROGEN 10 MG/DL (7-18); CALCIUM LEVEL 8.9 MG/DL (8.5-10.1); CARBON DIOXIDE LEVEL 25 MEQ/L (21-32); CHLORIDE LEVEL 110 MEQ/L (98-107); CREATININE FOR GFR 0.58 MG/DL (0.55-1.30); GLOMERULAR FILTRATION RATE > 60.0 (>60); GLUCOSE, FASTING 75 MG/DL (70-100); LIPASE 132 U/L (73-393); POTASSIUM SERUM 4.1 MEQ/L (3.5-5.1); SODIUM LEVEL 139 MEQ/L (136-145); TOTAL PROTEIN 6.9 GM/DL (6.4-8.2)
--- NOTE | 2020-03-26 22:18 | REPVR ---
PROCEDURE INFORMATION: Exam: CT Abdomen And Pelvis Without Contrast Exam date and time: 03/26/2020 9:55 PM Age: 24 years old Clinical indication: Abdominal pain; Flank; Right; Additional info: Flank pain TECHNIQUE: Imaging protocol: Computed tomography of the abdomen and pelvis without contrast. Radiation optimization: All CT scans at this facility use at least one of these dose optimization techniques: automated exposure control; mA and/or kV adjustment per patient size (includes targeted exams where dose is matched to clinical indication); or iterative reconstruction. COMPARISON: CT ABD PELVIS W/O CONTRAST 06/26/2019 6:03 PM FINDINGS: Liver: Normal. No mass. Gallbladder and bile ducts: Thick-walled gallbladder. No calculi demonstrated. Clinical correlation to exclude cholecystitis suggested. Pancreas: Normal. No ductal dilation. Spleen: Normal. No splenomegaly. Adrenals: Normal. No mass. Kidneys and ureters: Nonobstructive calculi left kidney. 2 mm calcification demonstrated in the pelvis to the right of midline in the approximate location of the distal ureter. The distal ureter is not clearly visualized. If there is strong suspicion for a distal ureteral calculus on the right further evaluation with CT urography would be helpful. Stomach and bowel: Unremarkable. No obstruction. No mucosal thickening. Appendix: The appendix is within normal limits. There is no appendiceal enlargement, periappendiceal inflammatory changes or abscess. Intraperitoneal space: Unremarkable. No free air. No significant fluid collection. Vasculature: Unremarkable. No abdominal aortic aneurysm. Lymph nodes: Unremarkable. No enlarged lymph nodes. Bladder: Unremarkable as visualized. Reproductive: IUD located centrally within the uterus. Bones/joints: Unremarkable. No acute fracture. Soft tissues: Unremarkable. IMPRESSION: 1. Thick-walled gallbladder. No calculi demonstrated. Clinical correlation to exclude cholecystitis suggested. 2. Nonobstructive calculi left kidney. 3. The appendix is within normal limits. There is no appendiceal enlargement, periappendiceal inflammatory changes or abscess. 4. 2 mm calcification demonstrated in the pelvis to the right of midline in the approximate location of the distal ureter. The distal ureter is not clearly visualized. If there is strong suspicion for a distal ureteral calculus on the right further evaluation with CT urography would be helpful. Electronically signed by: Kehinde Chaidez On 03/26/2020 22:18:19 PM
[2020-03-26 22:30] LABS: AMORPHOUS SEDIMENT SMALL (NEGATIVE); APPEARANCE, URINE CLOUDY (CLEAR); BACTERIA, URINE AUTO NEGATIVE (NEGATIVE); BILIRUBIN, URINE AUTO NEGATIVE (NEGATIVE); BLOOD, URINE BLOOD 3+ (NEGATIVE); COLOR, URINE YELLOW (YELLOW); GLUCOSE, URINE (UA) AUTO NEGATIVE (NEGATIVE); KETONE, URINE AUTO NEGATIVE (NEGATIVE); LEUKOCYTE ESTERASE, URINE AUTO NEGATIVE (NEGATIVE); NITRITE, URINE AUTO NEGATIVE (NEGATIVE); PROTEIN, URINE AUTO NEGATIVE (NEGATIVE); RBC, URINE AUTO TNTC /HPF (0-3); SPECIFIC GRAVITY URINE AUTO 1.014 (1.002-1.035); SQUAMOUS EPITHELIAL CELL UR AU 0 /HPF (0-6); UROBILINOGEN, URINE AUTO 0.2 mg/dL (0.0-2.0); WBC, URINE AUTO 1 /HPF (0-3)
[2020-03-26] MEDS ORDERED: NS 1,000 ML IV ONE (22:30)
[2020-03-26] MEDS ORDERED: TAMSULOSIN 0.4 MG CAP PO ONE (22:30)
[2020-03-26] MEDS ORDERED: MORPHINE 4 MG/ML 1ML VIAL/SYRINGE (J2270) IV ONE (22:30)
[2020-03-26] MEDS ORDERED: NORCO 5/325MG TABLET (BULK FOR ED) PO ONE (22:45)
[2020-03-27 00:42] VITALS: BP 122/78
--- NOTE | 2020-03-27 06:40 | ED PDOC ---
Post-Departure Follow-Up ct abd/p faxed to [facility] Leonel Baum MD Mar 27, 2020 06:40
== END 2020-03-27 00:43 | disposition home or self-care (01) ==
LOC: EDBD 20:53 → M ED 20:53
DX: N20.1 Calculus of ureter (principal); N20.0 Calculus of kidney; F41.9 Anxiety disorder, unspecified; Z87.891 Personal history of nicotine dependence; Z88.6 Allergy status to analgesic agent; Z88.8 Allergy status to other drugs, medicaments and biological substances
CPT/HCPCS: 74176; 80048; 80076; 81001; 83690; 84702; 85025; 96361; 96374; 99284; J2270

== ENCOUNTER 2021-03-18 16:46 | Emergency (ER) | payer OTHER ==
[~2021-03-18] VITALS: Ht 175.3 cm; Wt 87.5 kg
[~2021-03-18 16:46] MED LIST changes: -DICY20TA; +DICY20TA3; +VERA80TA3; +WELL100T2
[2021-03-18 17:52] LABS: BASO # 0.1 10^3/uL (0.0-0.2); BASO % 0.7 % (0.0-1.0); EOS # 0.3 10^3/uL (0.0-0.5); EOS % 3.9 % (0.0-3.0); HEMATOCRIT 43.2 % (36.0-47.0); HEMOGLOBIN 14.7 g/dl (12.0-15.5); LYMPH # 2.5 10^3/uL (1.5-5.0); LYMPH % 28.6 % (24.0-44.0); MEAN CORPUSCULAR HEMOGLOBIN 28.5 pg (27.0-33.0); MEAN CORPUSCULAR VOLUME 83.9 fl (80.0-96.0); MONO # 0.6 10^3/uL (0.0-0.8); MONO % 6.8 % (2.0-8.0); NEUTROPHILS # 5.3 10^3/uL (1.5-8.5); NEUTROPHILS % 59.4 % (36.0-66.0); PLATELET COUNT, AUTOMATED 422 10^3/uL (150-450); RED BLOOD COUNT 5.15 10^6/uL (4.00-5.40); WHITE BLOOD COUNT 8.8 10^3/uL (4.0-10.0)
[2021-03-18 18:23] LABS: ALBUMIN 4.2 GM/DL (3.2-5.2); ALT/SGPT 23 U/L (12-78); BILIRUBIN,DIRECT 0.2 MG/DL (0.0-0.2); BILIRUBIN,TOTAL 0.6 MG/DL (0.2-1.0); BLOOD UREA NITROGEN 13 MG/DL (7-18); CALCIUM LEVEL 9.2 MG/DL (8.5-10.1); CARBON DIOXIDE LEVEL 25 MEQ/L (21-32); CHLORIDE LEVEL 108 MEQ/L (98-107); CREATININE FOR GFR 0.59 MG/DL (0.55-1.30); GLOMERULAR FILTRATION RATE > 60.0 (>60); GLUCOSE, FASTING 86 MG/DL (70-100); LIPASE 84 U/L (73-393); POTASSIUM SERUM 4.3 MEQ/L (3.5-5.1); SODIUM LEVEL 138 MEQ/L (136-145); TOTAL PROTEIN 7.5 GM/DL (6.4-8.2)
[2021-03-18 18:52] LABS: HCG, SERUM QUALITATIVE NEGATIVE (NEGATIVE)
[2021-03-18] MEDS ORDERED: MORPHINE 4 MG/ML 1ML VIAL/SYRINGE (J2270) IV ONE (19:25)
[2021-03-18] MEDS ORDERED: ONDANSETRON 4MG/2ML VIAL IV ONE (19:25)
[2021-03-18 19:49] VITALS: BP 125/70
--- NOTE | 2021-03-18 20:04 | REP ---
INDICATION: check IUD and pain COMPARISON: None. TECHNIQUE: Transabdominal pelvic ultrasound with color Doppler evaluation of the ovaries. FINDINGS: Bladder is unremarkable and measures 8.1 x 4.7 x 10.2 cm. Normal anteverted uterus measures 9.5 x 4.0 x 5.6 cm. The endometrial complex measures 6.4 mm thickness. IUD identified in central satisfactory position. Bilateral ovaries are normal in appearance and vascularity without evidence for torsion. Right ovary measures 3.1 x 2.1 x 2.3 cm; R I = 0.52. Left ovary measures 3.2 x 3.0 x 2.8 cm; R I = 0.41. No pelvic fluid or adnexal mass lesion. IMPRESSION: Normal pelvic ultrasound. IUD in satisfactory position. <Electronically signed by Andriy Armando > 03/18/211999
[2021-03-20 15:12] LABS: GC DNA AMPLIFICATION NEGATIVE (NEGATIVE)
== END 2021-03-18 20:43 | disposition home or self-care (01) ==
LOC: M ED 16:46
DX: N94.10 Unspecified dyspareunia (principal); R11.0 Nausea; R68.83 Chills (without fever); Z97.5 Presence of (intrauterine) contraceptive device; Z88.6 Allergy status to analgesic agent
CPT/HCPCS: 76856; 80048; 80076; 81001; 83690; 84703; 85025; 87086; 87661; 93976; 96374; 96375; 99284; J2270; J2405

== ENCOUNTER 2022-02-15 10:33 | Emergency (ER) | payer OTHER ==
[~2022-02-15] VITALS: Ht 175.3 cm; Wt 81.3 kg
[2022-02-15 10:34] VITALS: BP 125/75
== END 2022-02-15 12:08 | disposition left against medical advice (07) ==
LOC: M ED 10:33
DX: Z53.21 Procedure and treatment not carried out due to patient leaving prior to being seen by health care provider (principal)

== ENCOUNTER → 2023-01-21 | Outpatient (REF) | payer OTHER ==
[2023-01-21 17:48] LABS: APPEARANCE, URINE CLOUDY (CLEAR); BACTERIA, URINE AUTO 2+ (NEGATIVE); BILIRUBIN, URINE AUTO NEGATIVE (NEGATIVE); BLOOD, URINE BLOOD 3+ (NEGATIVE); COLOR, URINE YELLOW (YELLOW); GLUCOSE, URINE (UA) AUTO NEGATIVE (NEGATIVE); KETONE, URINE AUTO NEGATIVE (NEGATIVE); LEUKOCYTE ESTERASE, URINE AUTO 3+ (NEGATIVE); NITRITE, URINE AUTO POSITIVE (NEGATIVE); PROTEIN, URINE AUTO 2+ mg/dL (NEGATIVE); RBC, URINE AUTO 78 /HPF (0-3); SQUAMOUS EPITHELIAL CELL UR AU 45 /HPF (0-6); UROBILINOGEN, URINE AUTO 0.2 mg/dL (0.0-2.0); WBC, URINE AUTO 29 /HPF (0-3)
== END ==
LOC: M LAB REF 17:32
PROVIDERS: ATTEND Physician Assistant Medical
DX: N39.0 Urinary tract infection, site not specified (principal); N20.0 Calculus of kidney

== ENCOUNTER 2023-09-25 14:40 | Emergency (ER) | payer OTHER ==
[~2023-09-25] VITALS: Ht 172.7 cm; Wt 90.7 kg
[2023-09-25 14:41] VITALS: BP 163/85; TEMP 96; O2SAT 100
[2023-09-25 15:37] LABS: BASO # 0.1 10^3/uL (0.0-0.2); BASO % 0.9 % (0.0-1.0); EOS # 0.2 10^3/uL (0.0-0.5); EOS % 2.7 % (0.0-3.0); HEMATOCRIT 41.7 % (36.0-47.0); HEMOGLOBIN 13.9 g/dl (12.0-15.5); LYMPH # 3.1 10^3/uL (1.5-5.0); LYMPH % 39.7 % (24.0-44.0); MEAN CORPUSCULAR HEMOGLOBIN 27.8 pg (27.0-33.0); MEAN CORPUSCULAR HGB CONC 33.3 g/dl (32.0-36.5); MEAN CORPUSCULAR VOLUME 83.4 fl (80.0-96.0); MONO # 0.6 10^3/uL (0.0-0.8); MONO % 7.1 % (2.0-8.0); NEUTROPHILS # 3.9 10^3/uL (1.5-8.5); NEUTROPHILS % 49.3 % (36.0-66.0); PLATELET COUNT, AUTOMATED 477 10^3/uL (150-450); WHITE BLOOD COUNT 7.9 10^3/uL (4.0-10.0)
[2023-09-25] MEDS ORDERED: NS 1,000 ML IV ONE (15:55)
[2023-09-25] MEDS ORDERED: ONDANSETRON 4MG 2ML VIAL IV ONE (15:55)
[2023-09-25 15:59] LABS: ALBUMIN 4.1 G/DL (3.2-5.2); BILIRUBIN,DIRECT 0.2 MG/DL (<0.4); BILIRUBIN,TOTAL 0.6 MG/DL (0.3-1.2); TOTAL PROTEIN 7.2 G/DL (5.7-8.2)
[2023-09-25] MEDS ORDERED: MORPHINE 4 MG/ML 1ML VIAL IV ONE (16:00)
[2023-09-25] MEDS ORDERED: CEFD1CAP9 PO (17:14)
[2023-09-25] MEDS ORDERED: ACETAMINOPHEN 500 MG TAB PO ONE (17:15)
== END 2023-09-25 17:23 | disposition home or self-care (01) ==
LOC: M ED 14:40
DX: N39.0 Urinary tract infection, site not specified (principal); M54.50 Low back pain, unspecified; Z87.442 Personal history of urinary calculi; Z88.5 Allergy status to narcotic agent; Z88.8 Allergy status to other drugs, medicaments and biological substances; Z79.2 Long term (current) use of antibiotics; Z79.899 Other long term (current) drug therapy
CPT/HCPCS: 74176; 80047; 80076; 81001; 83690; 84702; 85025; 87086; 96374; 96375; 99283; J2405

== ENCOUNTER → 2024-01-12 | Outpatient (REF) | payer OTHER ==
[~2024-01-12] MED LIST changes: +CEFD1CAP9 PO
== END ==
LOC: M LAB REF 20:34
PROVIDERS: ATTEND Physician Assistant
DX: R30.0 Dysuria (principal)

== ENCOUNTER → 2024-04-29 | Outpatient (CLI) | payer OTHER ==
[~2024-04-29] MED LIST changes: +ONDA-282 PO; -ONDA4TAB6 PO
== END ==
LOC: M WUC 11:58
PROVIDERS: ATTEND Registered Nurse Psychiatric/Mental Health
DX: Z86.59 Personal history of other mental and behavioral disorders (principal)
CPT/HCPCS: 36415; 80307; G0480

== ENCOUNTER 2025-01-28 10:01 | Emergency (ER) | payer OTHER, SELFPAY ==
[~2025-01-28 10:01] MED LIST changes: -CYCL5TAB PO; +CYCL5TAB4 PO; -FLOM0.4C39 PO; +TAMS-18 PO
[2025-01-28 10:39] LABS: BASO # 0.1 10^3/uL (0.0-0.2); BASO % 1.2 % (0.0-1.0); EOS # 0.5 10^3/uL (0.0-0.5); EOS % 5.4 % (0.0-3.0); HEMATOCRIT 40.3 % (36.0-47.0); HEMOGLOBIN 13.6 g/dl (12.0-15.5); LYMPH % 32.5 % (24.0-44.0); MEAN CORPUSCULAR HEMOGLOBIN 27.9 pg (27.0-33.0); MEAN CORPUSCULAR HGB CONC 33.7 g/dl (32.0-36.5); MEAN CORPUSCULAR VOLUME 82.6 fl (80.0-96.0); MONO # 0.7 10^3/uL (0.0-0.8); MONO % 7.3 % (2.0-8.0); NEUTROPHILS # 4.9 10^3/uL (1.5-8.5); NEUTROPHILS % 53.4 % (36.0-66.0); PLATELET COUNT, AUTOMATED 430 10^3/uL (150-450); RED BLOOD COUNT 4.88 10^6/uL (4.00-5.40); WHITE BLOOD COUNT 9.1 10^3/uL (4.0-10.0)
[2025-01-28 10:49] LABS: KETONE, URINE AUTO RFX NEGATIVE (NEGATIVE); NITRITE, URINE AUTO RFX NEGATIVE (NEGATIVE); RBC, URINE AUTO RFX TNTC /HPF (0-3); SQUAM EPITHELIAL CELL UR AURFX 19 /HPF (0-6)
[2025-01-28 10:50] LABS: LEUKOCYTE ESTERASE UR AUTO RFX 3+ (NEGATIVE); WBC, URINE AUTO RFX 41 /HPF (0-3)
[2025-01-28 11:10] LABS: BLOOD UREA NITROGEN 18 MG/DL (9-23); CARBON DIOXIDE LEVEL 25 MMOL/L (20-31); CHLORIDE LEVEL 107 MMOL/L (98-107); CREATININE FOR GFR 0.46 MG/DL (0.55-1.30); GLOMERULAR FILTRATION RATE > 90.0 (>60); GLUCOSE, FASTING 92 MG/DL (60-100); POTASSIUM SERUM 4.4 MMOL/L (3.5-5.1); SODIUM LEVEL 141 MMOL/L (136-145)
[2025-01-28] MEDS: MORPHINE 4 MG/ML 1ML VIAL IV ONE (11:33)
[2025-01-28] MEDS: NS (Normal Saline) 0.9% 1,000 ML IV ONE (11:34)
[2025-01-28] MEDS: DICYCLOMINE INJ 20MG/2ML IM ONE (11:44)
[2025-01-28 12:40] VITALS: BP 133/78
[2025-01-28] MEDS: NITROFURANTOIN 100 MG CAP PO ONE (14:27)
[2025-01-28] MEDS: ACETAMINOPHEN *IV* 1,000 MG in IV 1 EA IV ONE (14:28)
[2025-01-28 14:55] VITALS: TEMP 98; O2SAT 99
[2025-01-28] MEDS ORDERED: NITR100C3 PO (15:19)
== END 2025-01-28 15:23 | disposition left against medical advice (07) ==
LOC: EDBD 10:01 → M ED 10:01
DX: R10.9 Unspecified abdominal pain (principal); N39.0 Urinary tract infection, site not specified; N20.0 Calculus of kidney; K59.00 Constipation, unspecified; F41.9 Anxiety disorder, unspecified; Z87.442 Personal history of urinary calculi; Z86.79 Personal history of other diseases of the circulatory system; Z88.5 Allergy status to narcotic agent; Z88.8 Allergy status to other drugs, medicaments and biological substances; Z79.2 Long term (current) use of antibiotics; Z79.899 Other long term (current) drug therapy; Z53.9 Procedure and treatment not carried out, unspecified reason
CPT/HCPCS: 74176; 76830; 76856; 80048; 81001; 84702; 85025; 87086; 93976; 96361; 96372; 96374; 96375; 99284; J0131; J0500

== ENCOUNTER 2025-07-19 16:38 | Emergency (ER) | payer OTHER, SELFPAY ==
[~2025-07-19] VITALS: Ht 170.2 cm; Wt 92.5 kg
[~2025-07-19 16:38] MED LIST changes: +NITR100C3 PO
[2025-07-19 17:23] LABS: KETONE, URINE AUTO RFX NEGATIVE (NEGATIVE); LEUKOCYTE ESTERASE UR AUTO RFX 2+ (NEGATIVE); MUCUS, URINE RFX SMALL (NEGATIVE); NITRITE, URINE AUTO RFX NEGATIVE (NEGATIVE); RBC, URINE AUTO RFX TNTC /HPF (0-3); SQUAM EPITHELIAL CELL UR AURFX 16 /HPF (0-6); WBC, URINE AUTO RFX 15 /HPF (0-3)
[2025-07-19 18:41] LABS: BASO # 0.1 10^3/uL (0.0-0.2); BASO % 1.0 % (0.0-1.0); EOS # 0.3 10^3/uL (0.0-0.5); EOS % 3.0 % (0.0-3.0); LYMPH # 3.9 10^3/uL (1.5-5.0); LYMPH % 34.5 % (24.0-44.0); MONO # 0.7 10^3/uL (0.0-0.8); MONO % 6.4 % (2.0-8.0); NEUTROPHILS # 6.1 10^3/uL (1.5-8.5); NEUTROPHILS % 54.5 % (36.0-66.0); PLATELET COUNT, AUTOMATED 560 10^3/uL (150-450)
[2025-07-19 19:09] LABS: HCG, SERUM QUALITATIVE NEGATIVE (NEGATIVE)
[2025-07-19 19:10] LABS: CALCIUM LEVEL 9.9 MG/DL (8.5-10.1); CARBON DIOXIDE LEVEL 26 MMOL/L (20-31); CHLORIDE LEVEL 103 MMOL/L (98-107); CREATININE FOR GFR 0.52 MG/DL (0.55-1.30); GLOMERULAR FILTRATION RATE > 90.0 (>60); POTASSIUM SERUM 4.6 MMOL/L (3.5-5.1); SODIUM LEVEL 138 MMOL/L (136-145)
[2025-07-19] MEDS: ONDANSETRON 4MG/2ML VIAL IV ONE (19:19)
[2025-07-19] MEDS: ACETAMINOPHEN *IV* 1,000 MG in IV 1 EA IV ONE (21:50)
[2025-07-19] MEDS ORDERED: PHEN-372 PO (22:00)
[2025-07-19] MEDS ORDERED: NITR100C3 PO (22:00)
[2025-07-19 22:01] VITALS: BP 129/53
[2025-07-19] MEDS ORDERED: ONDA-282 PO (22:02)
[2025-07-19] MEDS: PHENAZOPYRIDINE 100 MG TAB PO ONE (22:14)
[2025-07-19] MEDS: NITROFURANTOIN 100 MG CAP PO ONE (22:14)
[2025-07-19 22:15] VITALS: TEMP 98.9; O2SAT 99
== END 2025-07-19 22:19 | disposition home or self-care (01) ==
LOC: M ED 16:38
DX: N30.00 Acute cystitis without hematuria (principal); N20.0 Calculus of kidney; K59.00 Constipation, unspecified; F41.9 Anxiety disorder, unspecified; Z88.5 Allergy status to narcotic agent; Z88.6 Allergy status to analgesic agent; Z88.8 Allergy status to other drugs, medicaments and biological substances; Z79.2 Long term (current) use of antibiotics; Z79.899 Other long term (current) drug therapy
CPT/HCPCS: 74176; 80048; 81001; 84703; 85025; 87086; 96365; 96375; 96376; 99284; J0131; J2405; J3010

== ENCOUNTER 2025-08-30 13:14 | Emergency (ER) | payer OTHER ==
[~2025-08-30] VITALS: Ht 172.7 cm; Wt 94.7 kg
[~2025-08-30 13:14] MED LIST changes: +PHEN-372 PO
[2025-08-30 13:55] LABS: KETONE, URINE AUTO RFX NEGATIVE (NEGATIVE); MUCUS, URINE RFX SMALL (NEGATIVE); NITRITE, URINE AUTO RFX NEGATIVE (NEGATIVE); RBC, URINE AUTO RFX 131 /HPF (0-3); SQUAM EPITHELIAL CELL UR AURFX 8 /HPF (0-6); WBC, URINE AUTO RFX 3 /HPF (0-3)
[2025-08-30 13:56] LABS: LEUKOCYTE ESTERASE UR AUTO RFX 2+ (NEGATIVE)
[2025-08-30 14:55] LABS: BASO # 0.1 10^3/uL (0.0-0.2); BASO % 0.8 % (0.0-1.0); EOS # 0.5 10^3/uL (0.0-0.5); EOS % 4.6 % (0.0-3.0); LYMPH # 3.1 10^3/uL (1.5-5.0); LYMPH % 30.9 % (24.0-44.0); MONO # 0.7 10^3/uL (0.0-0.8); MONO % 6.8 % (2.0-8.0); NEUTROPHILS # 5.8 10^3/uL (1.5-8.5); NEUTROPHILS % 56.6 % (36.0-66.0); PLATELET COUNT, AUTOMATED 467 10^3/uL (150-450)
[2025-08-30] MEDS: ACETAMINOPHEN *IV* 1,000 MG in IV 1 EA IV ONE (15:05)
[2025-08-30] MEDS: ONDANSETRON 4MG/2ML VIAL IV ONE (15:06)
[2025-08-30] MEDS: NS (Normal Saline) 0.9% 1,000 ML IV ONE (15:06)
[2025-08-30 15:14] LABS: HCG, SERUM QUALITATIVE NEGATIVE (NEGATIVE)
[2025-08-30 15:16] LABS: ALT/SGPT 16 U/L (7.0-40); AST/SGOT 17 U/L (<34); CALCIUM LEVEL 9.2 MG/DL (8.5-10.1); CARBON DIOXIDE LEVEL 25 MMOL/L (20-31); CHLORIDE LEVEL 110 MMOL/L (98-107); CREATININE FOR GFR 0.56 MG/DL (0.55-1.30); GLOMERULAR FILTRATION RATE > 90.0 (>60); POTASSIUM SERUM 4.4 MMOL/L (3.5-5.1); SODIUM LEVEL 143 MMOL/L (136-145)
[2025-08-30] MEDS ORDERED: ISOVUE-370 76% 100 ML VIAL As Ordered ONE (17:29)
[2025-08-30] MEDS ORDERED: HYDROMORPHONE HCL 0.5 MG/0.5 ML SYRINGE IV PRN (18:20)
[2025-08-30 18:45] VITALS: TEMP 98.2
[2025-08-30] MEDS ORDERED: IBUP80TA PO (22:44)
[2025-08-30] MEDS ORDERED: APAP325T4 PO (22:44)
[2025-08-30] MEDS ORDERED: ONDA-282 PO (22:44)
[2025-08-30] MEDS: NORCO 5/325MG TABLET (HOME DOSE PACK) PO ONE (23:00)
[2025-08-30 23:01] VITALS: BP 139/63; O2SAT 100
== END 2025-08-30 23:05 | disposition home or self-care (01) ==
LOC: M ED 13:14
DX: R10.9 Unspecified abdominal pain (principal); F41.9 Anxiety disorder, unspecified; K57.30 Diverticulosis of large intestine without perforation or abscess without bleeding; M51.35 Other intervertebral disc degeneration, thoracolumbar region; N20.0 Calculus of kidney; K59.00 Constipation, unspecified; Z86.79 Personal history of other diseases of the circulatory system; Z88.1 Allergy status to other antibiotic agents; Z88.5 Allergy status to narcotic agent; Z88.8 Allergy status to other drugs, medicaments and biological substances; Z87.442 Personal history of urinary calculi; Z79.1 Long term (current) use of non-steroidal anti-inflammatories (NSAID); Z79.899 Other long term (current) drug therapy
CPT/HCPCS: 74176; 74177; 76856; 80048; 80076; 81001; 83605; 83690; 84703; 85025; 87086; 93041; 93976; 96374; 96375; 96376; 99285; J0134; J2405; J3010; Q9967